=== PATIENT | male | born 1990 | race Caucasian/White ===

== ENCOUNTER 2018-07-25 14:05 | Emergency (ER) | payer MEDICAID, OTHER ==
[~2018-07-25] VITALS: Ht 177.8 cm; Wt 118.2 kg
[2018-07-25] MEDS ORDERED: amox tr/potassium clavulanate 875/125mg TAB PO ONE (15:05)
[2018-07-25] MEDS ORDERED: ondansetron 4mg rapidly disintigrating tab PO ONE (15:05)
[2018-07-25] MEDS ORDERED: AMOX-580 PO (15:42)
[2018-07-25 15:49] VITALS: BP 116/79
== END 2018-07-25 15:51 | disposition home or self-care (01) ==
LOC: ER 14:05
DX: R22.0 Localized swelling, mass and lump, head (principal); K08.89 Other specified disorders of teeth and supporting structures; K21.9 Gastro-esophageal reflux disease without esophagitis
CPT/HCPCS: 99283

== ENCOUNTER 2019-02-05 08:47 | Emergency (ER) | payer MEDICAID, OTHER ==
[~2019-02-05] VITALS: Ht 177.8 cm; Wt 69.0 kg
[2019-02-05] MEDS ORDERED: ondansetron/PF 4mg/2ml inj IV ONE ×2 (09:15→12:45)
[2019-02-05] MEDS ORDERED: famotidine/PF 10 mg/ml inj IV ONE (09:15)
[2019-02-05] MEDS ORDERED: normal saline 1000ML IV soln IVB ONE (09:15)
[2019-02-05 09:26] LABS: BASOPHILS % (AUTO) 0.2 % (0-1); MEAN CORPUSCULAR HGB CONC 34.9 g/dL (33.0-36.5)
[2019-02-05 09:30] LABS: EOSINOPHILS % (AUTO) 0.1 % (0-6); HEMATOCRIT 51.4 % (42.0-52.0); HEMOGLOBIN 17.9 g/dl (14.0-17.9); LYMPHOCYTES # (AUTO) 1.8 X10'3 (1.1-4.8); LYMPHOCYTES % (AUTO) 10.7 % (21-51); MEAN CORPUSCULAR HEMOGLOBIN 30.2 PG (27.0-31.0); MEAN CORPUSCULAR VOLUME 86.5 FL (78-98); MONOCYTES # (AUTO) 1.1 X10'3 (0-0.9); MONOCYTES % (AUTO) 6.6 % (2-12); NEUTROPHILS # (AUTO) 13.7 X10'3 (1.8-7.7); NEUTROPHILS % (AUTO) 82.4 % (42-75); PLATELET COUNT 301 X10'3 (140-440); RED BLOOD COUNT 5.94 X10'6 (4.70-6.10); RED CELL DISTRIBUTION WIDTH 12.9 % (11.5-14.5); WHITE BLOOD COUNT 16.6 X10'3 (4.5-11.0)
[2019-02-05 09:36] LABS: ALANINE AMINOTRANSFERASE 27 U/L (12-78); ALBUMIN 5.1 G/DL (3.4-5.0); ALBUMIN/GLOBULIN RATIO 1.2 (1.1-1.5); ALKALINE PHOSPHATASE 90 IU/L (46-116); ANION GAP 16 (8-16); ASPARTATE AMINO TRANSFERASE 16 U/L (10-37); BILIRUBIN,TOTAL 1.6 MG/DL (0.1-1.0); BLOOD UREA NITROGEN 32 MG/DL (7-18); BUN/CREATININE RATIO 18.1 (5.4-32.0); CALCIUM 9.7 MG/DL (8.5-10.1); CHLORIDE 98 MMOL/L (99-107); CREATININE 1.77 MG/DL (0.60-1.10); GLUCOSE 147 MG/DL (70-104); POTASSIUM 3.4 MMOL/L (3.5-5.1); SODIUM 137 MMOL/L (135-145); TOTAL CARBON DIOXIDE 22.7 MMOL/L (24-32); TOTAL PROTEIN 9.4 G/DL (6.4-8.2); eGFR 46 ML/MIN
[2019-02-05 09:40] LABS: CLARITY,URINE CLOUDY (Clear); COLOR,URINE YELLOW (Yellow); GLUCOSE, URINE NEGATIVE (Neg); KETONES,URINE TRACE mg/dl (Neg); LEUKOCYTE ESTERASE ,URINE NEGATIVE (Neg); OCCULT BLOOD,URINE MODERATE (Neg); PROTEIN,URINE >=300 mg/dl (Neg)
[2019-02-05 09:44] LABS: UA COLLECTION TYPE CLN CATCH MIDSTREAM
[2019-02-05 09:46] LABS: NITRITES, URINE NEGATIVE (Neg)
[2019-02-05 09:49] LABS: HYALINE CASTS >30 /LPF (NEGATIVE); SQUAMOUS EPITHELIAL CELL,UR FEW /LPF (FEW)
[2019-02-05 09:51] LABS: BACTERIA,URINE 2+ /HPF (Neg); RBC,URINE 0-2 /HPF (0-2)
[2019-02-05] MEDS ORDERED: normal saline 1000ML IV soln IV ONE (10:30)
[2019-02-05] MEDS ORDERED: CEPH250T PO (11:29)
[2019-02-05] MEDS ORDERED: ONDA4TAB6 PO (11:29)
[2019-02-05] MEDS ORDERED: CefTRIAXone 2gm/D5W 50ml 50 ML IV ONE (11:30)
--- NOTE | 2019-02-05 11:43 | NUR ---
spoke with SHIV Jenkins, he said that Sam does not need the 4th liter of fluid, just the Rocephin
[2019-02-05 12:49] VITALS: BP 127/71
== END 2019-02-05 12:53 | disposition home or self-care (01) ==
LOC: ER 08:47
DX: N39.0 Urinary tract infection, site not specified (principal); N28.9 Disorder of kidney and ureter, unspecified; E86.0 Dehydration; R11.2 Nausea with vomiting, unspecified; R19.7 Diarrhea, unspecified; K21.9 Gastro-esophageal reflux disease without esophagitis; M54.9 Dorsalgia, unspecified; R79.1 Abnormal coagulation profile; Z79.899 Other long term (current) drug therapy
CPT/HCPCS: 36415; 71045; 74176; 80053; 81001; 83605; 84145; 85025; 85610; 87040; 87088; 96361; 96365; 96375; 96376; 99284; J0696; J2405; J3490; J7030

== ENCOUNTER 2019-03-10 18:16 | Emergency (ER) | payer SELFPAY ==
[~2019-03-10] VITALS: Ht 177.8 cm; Wt 58.5 kg
[~2019-03-10 18:16] MED LIST: ONDA4TAB6 PO
[2019-03-10] MEDS ORDERED: ondansetron/PF 4mg/2ml inj IV ONE ×2 (19:55→20:15)
[2019-03-10 20:13] LABS: BASOPHILS % (AUTO) 0.2 % (0-1); EOSINOPHILS % (AUTO) 0 % (0-6); HEMATOCRIT 51.6 % (42.0-52.0); HEMOGLOBIN 17.9 g/dl (14.0-17.9); LYMPHOCYTES # (AUTO) 1.6 X10'3 (1.1-4.8); LYMPHOCYTES % (AUTO) 8.3 % (21-51); MEAN CORPUSCULAR HEMOGLOBIN 30.1 PG (27.0-31.0); MEAN CORPUSCULAR HGB CONC 34.7 g/dL (33.0-36.5); MEAN CORPUSCULAR VOLUME 86.8 FL (78-98); MEAN PLATELET VOLUME 7.6 FL (7.4-10.4); MONOCYTES # (AUTO) 1.1 X10'3 (0-0.9); MONOCYTES % (AUTO) 5.4 % (2-12); NEUTROPHILS # (AUTO) 16.7 X10'3 (1.8-7.7); NEUTROPHILS % (AUTO) 86.1 % (42-75); PLATELET COUNT 396 X10'3 (140-440); RED BLOOD COUNT 5.95 X10'6 (4.70-6.10); RED CELL DISTRIBUTION WIDTH 12.7 % (11.5-14.5); WHITE BLOOD COUNT 19.4 X10'3 (4.5-11.0)
[2019-03-10] MEDS ORDERED: normal saline 1000ML IV soln IVB ONE (20:15)
[2019-03-10] MEDS ORDERED: diphenhydrAMINE 50 mg/ml inj IV ONE (20:15)
[2019-03-10] MEDS ORDERED: haloperidol lactate 5mg/ml inj IM ONE (20:15)
[2019-03-10 20:25] LABS: ALANINE AMINOTRANSFERASE 27 U/L (12-78); ALBUMIN 4.7 G/DL (3.4-5.0); ALBUMIN/GLOBULIN RATIO 1.2 (1.1-1.5); ALKALINE PHOSPHATASE 80 IU/L (46-116); ANION GAP 17 (8-16); ASPARTATE AMINO TRANSFERASE 22 U/L (10-37); BLOOD UREA NITROGEN 10 MG/DL (7-18); BUN/CREATININE RATIO 9.3 (5.4-32.0); CALCIUM 10.1 MG/DL (8.5-10.1); CHLORIDE 101 MMOL/L (99-107); CREATININE 1.07 MG/DL (0.60-1.10); GLUCOSE 134 MG/DL (70-104); LIPASE 65 U/L (73-393); POTASSIUM 3.4 MMOL/L (3.5-5.1); SODIUM 140 MMOL/L (135-145); TOTAL CARBON DIOXIDE 22.3 MMOL/L (24-32); TOTAL PROTEIN 8.7 G/DL (6.4-8.2); eGFR 82 ML/MIN
[2019-03-10 20:34] LABS: CLARITY,URINE CLEAR (Clear); COLOR,URINE YELLOW (Yellow); GLUCOSE, URINE NEGATIVE (Neg); KETONES,URINE >=80 mg/dl (Neg); LEUKOCYTE ESTERASE ,URINE NEGATIVE (Neg); NITRITES, URINE NEGATIVE (Neg); OCCULT BLOOD,URINE SMALL (Neg); PROTEIN,URINE 100 mg/dl (Neg); UA COLLECTION TYPE VOIDED
[2019-03-10 20:53] LABS: BACTERIA,URINE NONE SEEN /HPF (Neg); MUCUS STRANDS MANY /LPF (Neg); RBC,URINE 20-50 /HPF (0-2); SQUAMOUS EPITHELIAL CELL,UR FEW /LPF (FEW); WBC,URINE 0-4 /HPF (0-4)
[2019-03-10] MEDS ORDERED: ketorolac trometh. 30mg/ml inj. IV ONE (21:20)
[2019-03-10] MEDS ORDERED: ONDA8TAB6 PO (21:23)
[2019-03-10 22:00] VITALS: BP 122/66
== END 2019-03-10 22:04 | disposition home or self-care (01) ==
LOC: ER 18:17
DX: G43.A0 Cyclical vomiting, in migraine, not intractable (principal); E86.0 Dehydration; K21.9 Gastro-esophageal reflux disease without esophagitis; F12.90 Cannabis use, unspecified, uncomplicated; F17.200 Nicotine dependence, unspecified, uncomplicated; Z79.899 Other long term (current) drug therapy
CPT/HCPCS: 36415; 80053; 81001; 83690; 85025; 85610; 93005; 96361; 96372; 96374; 96375; 99284; J1200; J1630; J1885; J2405; J7030

== ENCOUNTER 2019-05-19 06:38 | Emergency (ER) | payer OTHER ==
[~2019-05-19] VITALS: Ht 177.8 cm; Wt 66.0 kg
[~2019-05-19 06:38] MED LIST changes: +ONDA8TAB6 PO
[2019-05-19] MEDS ORDERED: pantoprazole 40 MG vial IV ONE (07:20)
[2019-05-19] MEDS ORDERED: normal saline 1000ML IV soln IVB ONE (07:20)
[2019-05-19] MEDS ORDERED: haloperidol lactate 5mg/ml inj IM ONE (07:20)
[2019-05-19] MEDS ORDERED: proCHLORperazine 10 MG/2 ml inj IV ONE (07:20)
[2019-05-19] MEDS ORDERED: LORazepam 2 mg/ml vial IV ONE (07:20)
[2019-05-19] MEDS ORDERED: diphenhydrAMINE 50 mg/ml inj IV ONE (07:20)
[2019-05-19 08:49] LABS: BASOPHILS % (AUTO) 0.2 % (0-1); EOSINOPHILS # (AUTO) 0.1 X10'3 (0-0.9); EOSINOPHILS % (AUTO) 0.8 % (0-6); HEMATOCRIT 49.3 % (42.0-52.0); LYMPHOCYTES # (AUTO) 2.2 X10'3 (1.1-4.8); LYMPHOCYTES % (AUTO) 13.3 % (21-51); MEAN CORPUSCULAR HEMOGLOBIN 30.7 PG (27.0-31.0); MEAN CORPUSCULAR HGB CONC 34.5 g/dL (33.0-36.5); MEAN CORPUSCULAR VOLUME 88.9 FL (78-98); MEAN PLATELET VOLUME 8.4 FL (7.4-10.4); MONOCYTES # (AUTO) 0.5 X10'3 (0-0.9); MONOCYTES % (AUTO) 3.1 % (2-12); NEUTROPHILS # (AUTO) 13.8 X10'3 (1.8-7.7); NEUTROPHILS % (AUTO) 82.6 % (42-75); PLATELET COUNT 246 X10'3 (140-440); RED BLOOD COUNT 5.54 X10'6 (4.70-6.10); RED CELL DISTRIBUTION WIDTH 13.2 % (11.5-14.5); WHITE BLOOD COUNT 16.7 X10'3 (4.5-11.0)
[2019-05-19 08:53] LABS: ALANINE AMINOTRANSFERASE 26 U/L (12-78); ALBUMIN 4.7 G/DL (3.4-5.0); ALBUMIN/GLOBULIN RATIO 1.4 (1.1-1.5); ALKALINE PHOSPHATASE 83 IU/L (46-116); AMYLASE 34 U/L (25-115); ANION GAP 15 (8-16); ASPARTATE AMINO TRANSFERASE 26 U/L (10-37); BILIRUBIN,TOTAL 0.7 MG/DL (0.1-1.0); BLOOD UREA NITROGEN 10 MG/DL (7-18); CALCIUM 9.9 MG/DL (8.5-10.1); CHLORIDE 106 MMOL/L (99-107); GLUCOSE 152 MG/DL (70-104); LIPASE 83 U/L (73-393); POTASSIUM 3.7 MMOL/L (3.5-5.1); SODIUM 144 MMOL/L (135-145); TOTAL CARBON DIOXIDE 22.8 MMOL/L (24-32); eGFR 88 ML/MIN
--- NOTE | 2019-05-19 10:40 | NUR ---
PT GIVEN PO
[2019-05-19] MEDS ORDERED: ONDA8TAB13 PO (10:45)
[2019-05-19] MEDS ORDERED: PANT-47 PO (10:45)
[2019-05-19 11:21] VITALS: BP 138/69
--- NOTE | 2019-05-20 09:15 | NUR ---
PT CALLED, STATING THAT RX x2 THAT WAS ELECTRICALLY TRANSMITTED TO [facility] ON [address] WAS NEVER RECEIVED. PHARMACY WAS CALLED AND VERIFIED THAT IT WAS NOT RECEIVED BY THEM OR ANY OTHER [facility]. NOTIFIED SHIV MALIN RX WAS PHONED INTO [facility] ON [address] AND PT WAS NOTIFIED.
== END 2019-05-19 11:23 | disposition home or self-care (01) ==
LOC: ER 06:39
DX: K52.9 Noninfective gastroenteritis and colitis, unspecified (principal); R11.2 Nausea with vomiting, unspecified; K21.9 Gastro-esophageal reflux disease without esophagitis; F12.90 Cannabis use, unspecified, uncomplicated; Z79.899 Other long term (current) drug therapy
CPT/HCPCS: 36415; 80053; 82150; 83690; 85025; 93005; 96361; 96372; 96374; 96375; 99284; C9113; J0780; J1200; J1630; J2060; J7030

== ENCOUNTER 2019-05-21 20:17 | Inpatient (IN) | payer MEDICAID, OTHER ==
[~2019-05-21] VITALS: Ht 177.8 cm; Wt 52.3 kg
[~2019-05-21 20:17] MED LIST changes: +ONDA8TAB13 PO; +PANT-47 PO
[2019-05-21] MEDS ORDERED: haloperidol lactate 5mg/ml inj IM ONE (20:40)
[2019-05-21] MEDS ORDERED: normal saline 1000ML IV soln IVB ONE (20:40)
[2019-05-21] MEDS ORDERED: diphenhydrAMINE 50 mg/ml inj IV ONE (20:40)
[2019-05-21] MEDS ORDERED: ondansetron/PF 4mg/2ml inj IV ONE (20:40)
[2019-05-21 20:59] LABS: EOSINOPHILS % (AUTO) 0 % (0-6); LYMPHOCYTES # (AUTO) 1.9 X10'3 (1.1-4.8); MEAN CORPUSCULAR VOLUME 86.1 FL (78-98)
[2019-05-21 21:00] LABS: BASOPHILS % (AUTO) 0.2 % (0-1); HEMATOCRIT 57.9 % (42.0-52.0); LYMPHOCYTES % (AUTO) 7.9 % (21-51); MEAN CORPUSCULAR HEMOGLOBIN 30.2 PG (27.0-31.0); MEAN CORPUSCULAR HGB CONC 35.1 g/dL (33.0-36.5); MONOCYTES # (AUTO) 1.5 X10'3 (0-0.9); MONOCYTES % (AUTO) 6.1 % (2-12); NEUTROPHILS % (AUTO) 85.8 % (42-75); RED BLOOD COUNT 6.73 X10'6 (4.70-6.10); WHITE BLOOD COUNT 24.4 X10'3 (4.5-11.0)
--- NOTE | 2019-05-21 21:00 | NUR ---
Pts meds given and multiple warmed blankets wrapped around the patient and side rails up and pt educated not to get up by himself. His mom and another gal in the room with him too. The monitor devices were placed onto the pt. He was educated about all the medicines. He verbalized understanding. A urinal placed on siderail. The lights were dimmed. Informed the patient that all these meds will make him nice and sleepy and that he should just allow sleep to come and that we are monitoring him so not to worry about falling asleep. He is comfortable with that. He said rest would be nice because he sure hasn't sleep too much the past 4 days.
[2019-05-21 21:11] LABS: ALANINE AMINOTRANSFERASE 37 U/L (12-78); ALBUMIN 6.5 G/DL (3.4-5.0); ALBUMIN/GLOBULIN RATIO 1.5 (1.1-1.5); ALKALINE PHOSPHATASE 115 IU/L (46-116); ANION GAP 22 (8-16); ASPARTATE AMINO TRANSFERASE 24 U/L (10-37); BILIRUBIN,TOTAL 1.3 MG/DL (0.1-1.0); BLOOD UREA NITROGEN 42 MG/DL (7-18); BUN/CREATININE RATIO 8.6 (5.4-32.0); CHLORIDE 90 MMOL/L (99-107); CREATININE 4.86 MG/DL (0.60-1.10); GLUCOSE 190 MG/DL (70-104); LIPASE 88 U/L (73-393); POTASSIUM 3.4 MMOL/L (3.5-5.1); SODIUM 136 MMOL/L (135-145); TOTAL CARBON DIOXIDE 23.8 MMOL/L (24-32); TOTAL PROTEIN 10.9 G/DL (6.4-8.2); eGFR 14 ML/MIN
[2019-05-21 21:12] LABS: HEMOGLOBIN 20.3 g/dl (14.0-17.9)
--- NOTE | 2019-05-21 21:21 | NUR ---
provided pt with cup of water and encouraged drinking
--- NOTE | 2019-05-21 21:29 | NUR ---
per pt girlfriend, pt has been taking her omeprazole 20mg daily but does not have a prescription himself for it.
[2019-05-21] MEDS ORDERED: OMEP40CA13 PO (21:31)
[2019-05-21 21:32] LABS: MEAN PLATELET VOLUME 7.9 FL (7.4-10.4); PLATELET COUNT 391 X10'3 (140-440)
[2019-05-21] MEDS ORDERED: HYDROcodone/acetaminophen 5mg/325mg tablet PO PRN (21:35)
[2019-05-21] MEDS ORDERED: acetaminophen 325mg tablet PO PRN (21:35)
[2019-05-21] MEDS ORDERED: morphine 2 MG/ML inj. syringe IV PRN ×2 (21:35)
[2019-05-21] MEDS ORDERED: mag hydrox/Alum hydrox/simeth 30ml oral suspension PO PRN (21:35)
[2019-05-21] MEDS ORDERED: magnesium hydroxide 30ml (MOM) UD suspension PO PRN (21:35)
[2019-05-21] MEDS ORDERED: HYDROcodone/acetaminophen 10/325mg tab PO PRN (21:35)
--- NOTE | 2019-05-21 22:05 | NUR ---
PATIENT ADMITTED TO ROOM 360A FROM ER FOR ACUTE KIDNEY INJURY. PLACED COMFORTABLE IN BED. VITAL SIGNS TAKEN AND RECORDED.
[2019-05-21] MEDS: normal saline 1000ml 1,000 ML IV SCH (22:15)
[2019-05-21 22:35] VITALS: BP 123/76
[2019-05-21 22:36] VITALS: BP_SYST 119; BP_SYST 122; BP_SYST 123; BP_DIAS 71; BP_DIAS 72; BP_DIAS 76
[2019-05-21] MEDS ORDERED: chlordiazePOXIDE 25mg capsule PO PRN (23:55)
[2019-05-22] MEDS: pantoprazole 40mg Tablet.DR PO SCH ×3 (00:07→19:40)
--- NOTE | 2019-05-22 02:14 | NUR ---
Problems reprioritized. Patient report given, questions answered & plan of care reviewed with EFE LOO.
--- NOTE | 2019-05-22 02:15 | NUR ---
Patient in room [facility]. I have received report from DREA SHEPARD RN and had the opportunity to ask questions and assume patient care. Addendum: 05/22/19 at 0305 by Allan Lujan RN Amended: Links added.
[2019-05-22 05:39] LABS: CLARITY,URINE CLEAR (Clear); COLOR,URINE YELLOW (Yellow); GLUCOSE, URINE NEGATIVE (Neg); KETONES,URINE NEGATIVE (Neg); LEUKOCYTE ESTERASE ,URINE NEGATIVE (Neg); NITRITES, URINE NEGATIVE (Neg); OCCULT BLOOD,URINE MODERATE (Neg); PH,URINE 5.5 (4.8-8.0); PROTEIN,URINE 100 mg/dl (Neg); UA COLLECTION TYPE VOIDED; UROBILINOGEN,URINE 0.2 E.U/dL (0.2-1.0)
[2019-05-22 05:46] LABS: BACTERIA,URINE 1+ /HPF (Neg); MUCUS STRANDS MODERATE /LPF (Neg); SQUAMOUS EPITHELIAL CELL,UR NONE SEEN /LPF (FEW); TRANSITIONAL EPI CELLS,URINE FEW /HPF; URIC ACID CRYSTALS 1+ /HPF (NEGATIVE)
[2019-05-22 05:47] LABS: HYALINE CASTS >30 /LPF (NEGATIVE)
[2019-05-22 06:07] LABS: BASOPHILS % (AUTO) 0 % (0-1); EOSINOPHILS % (AUTO) 0.2 % (0-6); HEMOGLOBIN 16.7 g/dl (14.0-17.9); LYMPHOCYTES # (AUTO) 3.3 X10'3 (1.1-4.8); LYMPHOCYTES % (AUTO) 19.4 % (21-51); MEAN CORPUSCULAR HEMOGLOBIN 30.7 PG (27.0-31.0); MEAN CORPUSCULAR HGB CONC 34.9 g/dL (33.0-36.5); MONOCYTES # (AUTO) 1.6 X10'3 (0-0.9); MONOCYTES % (AUTO) 9.6 % (2-12); NEUTROPHILS # (AUTO) 11.9 X10'3 (1.8-7.7); NEUTROPHILS % (AUTO) 70.8 % (42-75); PLATELET COUNT 227 X10'3 (140-440); RED BLOOD COUNT 5.45 X10'6 (4.70-6.10); WHITE BLOOD COUNT 16.8 X10'3 (4.5-11.0)
--- NOTE | 2019-05-22 06:23 | NUR ---
Problems reprioritized. Patient report given, questions answered & plan of care reviewed with EZE LOU. Addendum: 05/22/19 at 0623 by Allan Lujan RN Amended: Links added.
[2019-05-22 06:36] LABS: ALBUMIN 4.3 G/DL (3.4-5.0); ANION GAP 8 (8-16); BLOOD UREA NITROGEN 31 MG/DL (7-18); BUN/CREATININE RATIO 17.1 (5.4-32.0); CALCIUM 8.7 MG/DL (8.5-10.1); CHLORIDE 97 MMOL/L (99-107); CREATININE 1.81 MG/DL (0.60-1.10); GLUCOSE 108 MG/DL (70-104); SODIUM 134 MMOL/L (135-145); TOTAL CARBON DIOXIDE 28.7 MMOL/L (24-32); eGFR 45 ML/MIN
[2019-05-22 06:47] LABS: POTASSIUM 2.9 MMOL/L (3.5-5.1)
--- NOTE | 2019-05-22 06:53 | NUR ---
Patient in room [facility] 360. I have received report from EFE LOO and had the opportunity to ask questions and assume patient care.
[2019-05-22 08:00] VITALS: BP_SYST 148; BP_SYST 156; BP_SYST 164; BP_DIAS 85; BP_DIAS 89; BP_DIAS 93
[2019-05-22] MEDS: ondansetron/PF 4mg/2ml inj IV PRN (08:12)
[2019-05-22 08:19] VITALS: BP 138/90
[2019-05-22] MEDS: normal saline 1000ml 1,000 ML IV SCH ×2 (08:21→17:59)
[2019-05-22] MEDS ORDERED: proCHLORperazine 10 MG/2 ml inj IV PRN (08:25)
[2019-05-22] MEDS ORDERED: potassium Cl 20 mEq SR tablet PO PRN (08:25)
[2019-05-22] MEDS ORDERED: magnesium 4gm in 100ml NS 100 ML IV PRN (08:25)
[2019-05-22] MEDS ORDERED: potassium CL 10mEq/100ml bag 100 ML IV PRN (08:25)
[2019-05-22] MEDS ORDERED: magnesium Cl slow-release 64mg tablet PO PRN (08:25)
[2019-05-22] MEDS ORDERED: magnesium 2GM in 50ml NS 50 ML IV PRN (08:25)
[2019-05-22] MEDS: potassium Cl 20 mEq SR tablet PO PRN ×3 (08:57→17:12)
[2019-05-22] MEDS ORDERED: FLU VACC QS2019-20 36MOS UP/PF 60 MCG/0.5 ML SYRINGE IMVAC ONE (10:00)
[2019-05-22 11:00] VITALS: BP 118/62
[2019-05-22 13:19] LABS: URINE AMPHETAMINE SCREEN NEGATIVE (Neg); URINE BARBITUATE SCREEN NEGATIVE (Neg); URINE BENZODIAZEPINES SCREEN NEGATIVE (Neg); URINE CANNABINOID SCREEN POSITIVE (Neg); URINE COCAINE SCREEN NEGATIVE (Neg); URINE METHADONE SCREEN NEGATIVE (Neg); URINE OPIATE SCREEN POSITIVE (Neg); URINE PHENCYCLIDINE SCREEN NEGATIVE (Neg)
--- NOTE | 2019-05-22 15:13 | NUR ---
Low BMI screen: Pt BMI 16.5 admit w/ intractable N/V for 5 days, EDGAR, and dehydration. Pt sleeping and unable to wake during RD visit and also covered w/ blankets unable to perform accurate visible malnutrition assessment. Pt has had 10% UBW loss past 2 months 58.45kg in March vs current 52.3kg both chair scales. Pt has no strength assessment at this time and no edema/wounds. Did refuse first meal so far likely r/t GI issues; per RN currently pt N/V resolved PO 50% avg lunch and has no visible signs of muscle/fat wasting simply tall/thin frame. Given low PO hx in addition to severe wt loss hx pt qualifies for severe malnutrition at this time. Will need malnutrition ed prior to d/c. Will monitor for ONS/food preferences as GI symptoms and PO continue to improve. Rec: 1. continue regular diet 2. monitor for ONS needs 3. malnutrition ed prior to d/c 4. wt per rx Addendum: 05/22/19 at [address] Amended: Links added.
--- NOTE | 2019-05-22 18:15 | NUR ---
Patient in room [facility] 360. I have received report from and had the opportunity to ask questions and assume patient care.
--- NOTE | 2019-05-22 18:32 | NUR ---
patient nauseated 0700 given zofran with effect. Seen by DR Mcbride, is for DC in am. All cares given. no more pain or nausea reported during rest of shift. Report given to Ronald LOO
[2019-05-22 20:00] VITALS: BP 133/80
[2019-05-23] VITALS: BP 119/64
[2019-05-23] MEDS ORDERED: diphenhydrAMINE 25mg capsule PO PRN (01:25)
--- NOTE | 2019-05-23 01:50 | NUR ---
PAGER ID: [phone] MESSAGE: Sam [facility] 360A - requesting something to help him sleep. Received Benadryl in ER last night and states it worked well. Please advise. - Ronald LOO [id number] ordered Benadryl 50mg PO HS PRN INSOMNIA.
[2019-05-23] MEDS: normal saline 1000ml 1,000 ML IV SCH (04:33)
[2019-05-23 05:43] LABS: BASOPHILS % (AUTO) 0.1 % (0-1); EOSINOPHILS % (AUTO) 0.4 % (0-6); HEMATOCRIT 42.7 % (42.0-52.0); HEMOGLOBIN 15.1 g/dl (14.0-17.9); LYMPHOCYTES # (AUTO) 1.9 X10'3 (1.1-4.8); LYMPHOCYTES % (AUTO) 19.7 % (21-51); MEAN CORPUSCULAR HEMOGLOBIN 31.2 PG (27.0-31.0); MEAN CORPUSCULAR HGB CONC 35.3 g/dL (33.0-36.5); MEAN CORPUSCULAR VOLUME 88.4 FL (78-98); MEAN PLATELET VOLUME 8.2 FL (7.4-10.4); MONOCYTES # (AUTO) 0.8 X10'3 (0-0.9); MONOCYTES % (AUTO) 7.9 % (2-12); NEUTROPHILS % (AUTO) 71.9 % (42-75); PLATELET COUNT 170 X10'3 (140-440); RED BLOOD COUNT 4.83 X10'6 (4.70-6.10); RED CELL DISTRIBUTION WIDTH 12.8 % (11.5-14.5); WHITE BLOOD COUNT 9.7 X10'3 (4.5-11.0)
[2019-05-23 05:48] LABS: ALBUMIN 3.6 G/DL (3.4-5.0); ANION GAP 8 (8-16); BLOOD UREA NITROGEN 14 MG/DL (7-18); BUN/CREATININE RATIO 16.1 (5.4-32.0); CALCIUM 8.1 MG/DL (8.5-10.1); CHLORIDE 101 MMOL/L (99-107); CREATININE 0.87 MG/DL (0.60-1.10); GLUCOSE 107 MG/DL (70-104); POTASSIUM 3.8 MMOL/L (3.5-5.1); SODIUM 135 MMOL/L (135-145); TOTAL CARBON DIOXIDE 25.9 MMOL/L (24-32); eGFR > 90 ML/MIN
--- NOTE | 2019-05-23 06:21 | NUR ---
Problems reprioritized. Patient report given, questions answered & plan of care reviewed with Alma Delia LOO.
--- NOTE | 2019-05-23 06:39 | NUR ---
Change of shift Patient in room [facility] 360. I have received report from EZE Cardenas and had the opportunity to ask questions and assume patient care.
[2019-05-23 06:56] VITALS: BP 119/62
[2019-05-23 11:00] VITALS: BP 137/72
[2019-05-23] MEDS: pantoprazole 40mg Tablet.DR PO SCH (11:45)
[2019-05-23] MEDS: ondansetron/PF 4mg/2ml inj IV PRN (12:25)
--- NOTE | 2019-05-23 13:55 | NUR ---
DISCHARGE NOTE: PATIENT STABLE AND APPROPRIATE FOR DISCHARGE, IV TAKEN OUT, EDUCATION GIVEN, ALL BELONGINGS SENT WITH PATIENT, PATIENT TAKEN IN A WHEEL CHAIR TO LOBBY TO AN AWAITING CAR WHERE WILL TAKE PATIENT HOME
== END 2019-05-23 13:56 | disposition home or self-care (01) | DRG 422 ==
LOC: ER 20:18 → SUR 3N 21:35 → CMPBEDREQ 22:19
PROVIDERS: ADMIT Internal Medicine; ATTEND Family Medicine
DX: E86.0 Dehydration (principal); N17.0 Acute kidney failure with tubular necrosis; D72.829 Elevated white blood cell count, unspecified; R11.15 Cyclical vomiting syndrome unrelated to migraine; F12.90 Cannabis use, unspecified, uncomplicated; E87.6 Hypokalemia; K21.9 Gastro-esophageal reflux disease without esophagitis; K29.70 Gastritis, unspecified, without bleeding; R19.7 Diarrhea, unspecified; Z23 Encounter for immunization
CPT/HCPCS: 36415; 71045; 74176; 80048; 80053; 80305; 81001; 83690; 84132; 85025; 87081; 87088; 96372; 96374; 96375; 99285; G0378; J0780; J1200; J1630; J2405; J7030; Q0163; Q2037

== ENCOUNTER 2019-08-18 13:41 | Inpatient (IN) | payer MEDICAID, OTHER ==
[~2019-08-18] VITALS: Ht 177.8 cm; Wt 63.6 kg
[~2019-08-18 13:41] MED LIST changes: -ONDA8TAB13 PO; -ONDA8TAB6 PO
[2019-08-18] MEDS ORDERED: HYDROmorphone 1 mg/ml syringe IV ONE (13:50)
[2019-08-18] MEDS ORDERED: normal saline 1000ML IV soln IV ONE (13:50)
[2019-08-18] MEDS ORDERED: diatr meglu/diatrizoate 30ml oral sol.-(3 dose) bottle PO SCH ×2 (14:00→15:30)
[2019-08-18] MEDS ORDERED: ondansetron/PF 4mg/2ml inj IV ONE (14:00)
[2019-08-18] MEDS ORDERED: piperacillin/tazo 3.375gm/50ml 50 ML IV ONE (14:00)
[2019-08-18 14:53] LABS: BASOPHILS % (AUTO) 0.2 % (0-1); EOSINOPHILS % (AUTO) 0.3 % (0-6); HEMATOCRIT 41.6 % (42.0-52.0); HEMOGLOBIN 14.5 g/dl (14.0-17.9); LYMPHOCYTES # (AUTO) 1.7 X10'3 (1.1-4.8); LYMPHOCYTES % (AUTO) 10.8 % (21-51); MEAN CORPUSCULAR HEMOGLOBIN 30.7 PG (27.0-31.0); MEAN CORPUSCULAR HGB CONC 34.8 g/dL (33.0-36.5); MEAN CORPUSCULAR VOLUME 88.2 FL (78-98); MEAN PLATELET VOLUME 8.4 FL (7.4-10.4); MONOCYTES # (AUTO) 0.9 X10'3 (0-0.9); MONOCYTES % (AUTO) 5.6 % (2-12); NEUTROPHILS # (AUTO) 13.2 X10'3 (1.8-7.7); NEUTROPHILS % (AUTO) 83.1 % (42-75); PLATELET COUNT 238 X10'3 (140-440); RED BLOOD COUNT 4.72 X10'6 (4.70-6.10); RED CELL DISTRIBUTION WIDTH 12.9 % (11.5-14.5); WHITE BLOOD COUNT 15.9 X10'3 (4.5-11.0)
[2019-08-18] MEDS ORDERED: magnesium Cl slow-release 64mg tablet PO PRN (14:55)
[2019-08-18] MEDS ORDERED: ondansetron/PF 4mg/2ml inj IV PRN (14:55)
[2019-08-18] MEDS ORDERED: magnesium 2GM in 50ml NS 50 ML IV PRN (14:55)
[2019-08-18] MEDS ORDERED: potassium Cl 20 mEq SR tablet PO PRN ×2 (14:55)
[2019-08-18] MEDS ORDERED: morphine 2 MG/ML inj. syringe IV PRN (14:55)
[2019-08-18] MEDS ORDERED: HYDROcodone/acetaminophen 5mg/325mg tablet PO PRN (14:55)
[2019-08-18] MEDS ORDERED: potassium CL 10mEq/100ml bag 100 ML IV PRN (14:55)
[2019-08-18] MEDS ORDERED: mag hydrox/Alum hydrox/simeth 30ml oral suspension PO PRN (14:55)
[2019-08-18] MEDS ORDERED: magnesium 4gm in 100ml NS 100 ML IV PRN (14:55)
[2019-08-18] MEDS ORDERED: acetaminophen 325mg tablet PO PRN (14:55)
[2019-08-18] MEDS ORDERED: magnesium hydroxide 30ml (MOM) UD suspension PO PRN (14:55)
[2019-08-18] MEDS ORDERED: NO HOME MEDS (15:00)
[2019-08-18 15:19] LABS: ALANINE AMINOTRANSFERASE 21 U/L (12-78); ALBUMIN 3.9 G/DL (3.4-5.0); ALBUMIN/GLOBULIN RATIO 1.4 (1.1-1.5); ALKALINE PHOSPHATASE 71 IU/L (46-116); ANION GAP 11 (8-16); ASPARTATE AMINO TRANSFERASE 16 U/L (10-37); BILIRUBIN,TOTAL 0.5 MG/DL (0.1-1.0); BLOOD UREA NITROGEN 9 MG/DL (7-18); BUN/CREATININE RATIO 9.3 (5.4-32.0); CALCIUM 8.3 MG/DL (8.5-10.1); CHLORIDE 110 MMOL/L (99-107); CREATININE 0.97 MG/DL (0.60-1.10); GLUCOSE 108 MG/DL (70-104); POTASSIUM 3.3 MMOL/L (3.5-5.1); SODIUM 144 MMOL/L (135-145); TOTAL CARBON DIOXIDE 23.4 MMOL/L (24-32); TOTAL PROTEIN 6.7 G/DL (6.4-8.2); eGFR > 90 ML/MIN
[2019-08-18] MEDS ORDERED: LORazepam 2 mg/ml vial IV ONE (15:20)
[2019-08-18] MEDS: piperacillin/tazo 3.375gm/50ml 50 ML IV SCH (16:00)
[2019-08-18] MEDS: normal saline 1000ml 1,000 ML IV SCH ×2 (16:14→18:55)
[2019-08-18 16:59] LABS: URINE AMPHETAMINE SCREEN NEGATIVE (Neg); URINE BARBITUATE SCREEN NEGATIVE (Neg); URINE BENZODIAZEPINES SCREEN NEGATIVE (Neg); URINE CANNABINOID SCREEN POSITIVE (Neg); URINE COCAINE SCREEN NEGATIVE (Neg); URINE METHADONE SCREEN NEGATIVE (Neg); URINE OPIATE SCREEN NEGATIVE (Neg); URINE PHENCYCLIDINE SCREEN NEGATIVE (Neg)
--- NOTE | 2019-08-18 17:55 | NUR ---
MOTHER, SISTER, AND GIRLFRIEND HERE TO VISIT. CONDITION REPORT GIVEN. VISITORS DEPARTED AND WILL CALL BACK LATER FOR UPDATE ON PATIENT CONDITION.
--- NOTE | 2019-08-18 18:15 | NUR ---
Patient in room [facility]. I have received report from Mckenzie RN in ED and had the opportunity to ask questions and will assume patient care when pt arrives to unit
--- NOTE | 2019-08-18 18:42 | NUR ---
Pt arrived to room at 1838 via gurney. Pt is alert and oriented, VSS, very painful.
[2019-08-18 18:45] VITALS: BP 125/79
[2019-08-18] MEDS ORDERED: diatr meglu/diatrizoate 30ml oral sol.-(3 dose) bottle PO ONE (18:45)
[2019-08-18] MEDS: morphine 2 MG/ML inj. syringe IV PRN (18:52)
[2019-08-18] MEDS: potassium CL 10mEq/100ml bag 100 ML IV PRN ×4 (19:01→22:19)
[2019-08-18] MEDS: K and/or MAG REPLACEMENT MC SCH (20:00)
[2019-08-18] MEDS: proCHLORperazine 10 MG/2 ml inj IV PRN (20:13)
[2019-08-18 20:46] VITALS: BP 125/69
[2019-08-19] VITALS: BP 156/90
[2019-08-19] MEDS: piperacillin/tazo 3.375gm/50ml 50 ML IV SCH ×4 (00:07→23:06)
[2019-08-19] MEDS: morphine 2 MG/ML inj. syringe IV PRN ×6 (00:07→21:42)
[2019-08-19] MEDS: proCHLORperazine 10 MG/2 ml inj IV PRN ×3 (04:42→23:03)
[2019-08-19 05:22] LABS: BASOPHILS % (AUTO) 0.2 % (0-1); EOSINOPHILS % (AUTO) 0.1 % (0-6); HEMATOCRIT 43.7 % (42.0-52.0); HEMOGLOBIN 14.9 g/dl (14.0-17.9); LYMPHOCYTES # (AUTO) 2.2 X10'3 (1.1-4.8); LYMPHOCYTES % (AUTO) 12.6 % (21-51); MEAN CORPUSCULAR HEMOGLOBIN 30.3 PG (27.0-31.0); MEAN CORPUSCULAR HGB CONC 34.1 g/dL (33.0-36.5); MEAN CORPUSCULAR VOLUME 89.1 FL (78-98); MEAN PLATELET VOLUME 8.5 FL (7.4-10.4); MONOCYTES # (AUTO) 0.9 X10'3 (0-0.9); MONOCYTES % (AUTO) 5.3 % (2-12); NEUTROPHILS # (AUTO) 14.2 X10'3 (1.8-7.7); NEUTROPHILS % (AUTO) 81.8 % (42-75); PLATELET COUNT 226 X10'3 (140-440); RED BLOOD COUNT 4.91 X10'6 (4.70-6.10); RED CELL DISTRIBUTION WIDTH 13.2 % (11.5-14.5); WHITE BLOOD COUNT 17.4 X10'3 (4.5-11.0)
[2019-08-19 05:36] LABS: ALBUMIN 3.9 G/DL (3.4-5.0); ANION GAP 11 (8-16); BLOOD UREA NITROGEN 5 MG/DL (7-18); BUN/CREATININE RATIO 5.9 (5.4-32.0); CALCIUM 8.8 MG/DL (8.5-10.1); CHLORIDE 107 MMOL/L (99-107); CREATININE 0.85 MG/DL (0.60-1.10); GLUCOSE 126 MG/DL (70-104); MAGNESIUM 1.7 MG/DL (1.5-2.4); POTASSIUM 3.5 MMOL/L (3.5-5.1); SODIUM 142 MMOL/L (135-145); TOTAL CARBON DIOXIDE 23.9 MMOL/L (24-32); eGFR > 90 ML/MIN
--- NOTE | 2019-08-19 06:20 | NUR ---
Patient in room [facility] 347. I have received report from EZE GILBERT and had the opportunity to ask questions and assume patient care.
--- NOTE | 2019-08-19 06:22 | NUR ---
Problems reprioritized. Patient report given, questions answered & plan of care reviewed with EZE Flannery.
[2019-08-19 07:00] VITALS: BP 140/72
[2019-08-19] MEDS: K and/or MAG REPLACEMENT MC SCH ×2 (08:00→19:22)
[2019-08-19] MEDS: normal saline 1000ml 1,000 ML IV SCH ×2 (08:55→21:40)
[2019-08-19 11:00] VITALS: BP 137/85
--- NOTE | 2019-08-19 18:40 | NUR ---
Problems reprioritized. Patient report given, questions answered & plan of care reviewed with EZE BETH.
[2019-08-19 20:00] VITALS: BP 135/82
[2019-08-19] MEDS: lactobacillus rhamnosus 10,000 MMU CELLS/CAPSULE PO SCH (20:15)
[2019-08-19] MEDS: traMADol 50MG tablet PO PRN (20:16)
[2019-08-20] VITALS: BP 130/69
[2019-08-20 04:59] LABS: BASOPHILS % (AUTO) 0.2 % (0-1); EOSINOPHILS % (AUTO) 0.4 % (0-6); LYMPHOCYTES # (AUTO) 2.1 X10'3 (1.1-4.8); LYMPHOCYTES % (AUTO) 19.8 % (21-51); MEAN CORPUSCULAR HEMOGLOBIN 30.9 PG (27.0-31.0); MEAN CORPUSCULAR VOLUME 88.2 FL (78-98); MEAN PLATELET VOLUME 8.1 FL (7.4-10.4); MONOCYTES # (AUTO) 0.8 X10'3 (0-0.9); MONOCYTES % (AUTO) 7.3 % (2-12); NEUTROPHILS # (AUTO) 7.7 X10'3 (1.8-7.7); NEUTROPHILS % (AUTO) 72.3 % (42-75); PLATELET COUNT 214 X10'3 (140-440); RED BLOOD COUNT 4.88 X10'6 (4.70-6.10); RED CELL DISTRIBUTION WIDTH 12.8 % (11.5-14.5); WHITE BLOOD COUNT 10.6 X10'3 (4.5-11.0)
[2019-08-20 05:15] LABS: ALBUMIN 3.9 G/DL (3.4-5.0); ANION GAP 9 (8-16); BLOOD UREA NITROGEN 6 MG/DL (7-18); BUN/CREATININE RATIO 6.8 (5.4-32.0); CALCIUM 8.8 MG/DL (8.5-10.1); CHLORIDE 103 MMOL/L (99-107); CREATININE 0.88 MG/DL (0.60-1.10); GLUCOSE 121 MG/DL (70-104); MAGNESIUM 1.7 MG/DL (1.5-2.4); POTASSIUM 3.3 MMOL/L (3.5-5.1); SODIUM 138 MMOL/L (135-145); TOTAL CARBON DIOXIDE 25.6 MMOL/L (24-32); eGFR > 90 ML/MIN
[2019-08-20] MEDS: normal saline 1000ml 1,000 ML IV SCH (05:43)
[2019-08-20] MEDS: morphine 2 MG/ML inj. syringe IV PRN (05:43)
--- NOTE | 2019-08-20 06:23 | NUR ---
Patient in room [facility] 348. I have received report from EZE BETH and had the opportunity to ask questions and assume patient care.
--- NOTE | 2019-08-20 06:37 | NUR ---
Problems reprioritized. Patient report given, questions answered & plan of care reviewed with Alma Delia LOO.
[2019-08-20 07:00] VITALS: BP 144/87
[2019-08-20] MEDS: K and/or MAG REPLACEMENT MC SCH (08:00)
[2019-08-20] MEDS: piperacillin/tazo 3.375gm/50ml 50 ML IV SCH (08:14)
[2019-08-20] MEDS: lactobacillus rhamnosus 10,000 MMU CELLS/CAPSULE PO SCH (08:14)
[2019-08-20] MEDS: traMADol 50MG tablet PO PRN (09:20)
--- NOTE | 2019-08-20 09:30 | NUR ---
GAVE REPORT TO GUICHO
[2019-08-20] MEDS ORDERED: AMOX-422 PO (10:07)
[2019-08-20] MEDS ORDERED: ONDA4TAB6 PO (10:07)
[2019-08-20] MEDS ORDERED: TRAM50TA2 PO (10:07)
[2019-08-20 11:00] VITALS: BP 139/98
--- NOTE | 2019-08-20 11:45 | NUR ---
Pt DC to home with sal. Pt and significant other verbalized understanding of all DC orders. Pt is A & O, no pain and in no apparent distress. pt's antibiotics and other meds efaxed to [facility]. Pt was wheeled out to the front where his panchitoe picked him up to go .
== END 2019-08-20 11:44 | disposition home or self-care (01) | DRG 720 ==
LOC: ER 13:43 → ED HOLD 14:51 → SUR 3N 18:40
PROVIDERS: ADMIT Hospitalist; ATTEND Hospitalist
DX: A41.9 Sepsis, unspecified organism (principal); E87.2 Acidosis; K56.1 Intussusception; K56.609 Unspecified intestinal obstruction, unspecified as to partial versus complete obstruction; K21.9 Gastro-esophageal reflux disease without esophagitis; F12.90 Cannabis use, unspecified, uncomplicated; Z82.49 Family history of ischemic heart disease and other diseases of the circulatory system; A04.9 Bacterial intestinal infection, unspecified
CPT/HCPCS: 36415; 74176; 80048; 80053; 80305; 83605; 83735; 85025; 85610; 87040; 87081; 96374; 96375; 99291; G0378; J0780; J1170; J2060; J2270; J2405; J2543; J3480; J7030; Q9963

== ENCOUNTER 2019-08-26 10:59 | Emergency (ER) | payer MEDICAID, OTHER ==
[~2019-08-26] VITALS: Ht 177.8 cm; Wt 156.0 kg
[~2019-08-26 10:59] MED LIST changes: +AMOX-422 PO; -PANT-47 PO; +TRAM50TA2 PO
[2019-08-26 11:11] VITALS: BP 156/76
[2019-08-26 11:55] LABS: ALANINE AMINOTRANSFERASE 46 U/L (12-78); ALBUMIN 5.6 G/DL (3.4-5.0); ALBUMIN/GLOBULIN RATIO 1.4 (1.1-1.5); ALKALINE PHOSPHATASE 110 IU/L (46-116); AMYLASE 41 U/L (25-115); ANION GAP 16 (8-16); ASPARTATE AMINO TRANSFERASE 25 U/L (10-37); BLOOD UREA NITROGEN 16 MG/DL (7-18); BUN/CREATININE RATIO 12.3 (5.4-32.0); CALCIUM 10.8 MG/DL (8.5-10.1); CHLORIDE 88 MMOL/L (99-107); GLUCOSE 107 MG/DL (70-104); LIPASE 173 U/L (73-393); SODIUM 130 MMOL/L (135-145); TOTAL CARBON DIOXIDE 26.1 MMOL/L (24-32); TOTAL PROTEIN 9.5 G/DL (6.4-8.2); eGFR 65 ML/MIN
[2019-08-26 11:57] LABS: POTASSIUM 2.5 MMOL/L (3.5-5.1)
[2019-08-26 12:26] LABS: EOSINOPHILS # (AUTO) 0.1 X10'3 (0-0.9); MEAN CORPUSCULAR VOLUME 85.4 FL (78-98)
--- NOTE | 2019-08-26 12:36 | NUR ---
patient has K+ of 2.5. Dr. Lord aware VM left to return to the ER.
[2019-08-26 12:39] LABS: HEMATOCRIT 53.7 % (42.0-52.0); MEAN CORPUSCULAR HEMOGLOBIN 30.1 PG (27.0-31.0); MEAN CORPUSCULAR HGB CONC 35.2 g/dL (33.0-36.5); RED BLOOD COUNT 6.28 X10'6 (4.70-6.10); RED CELL DISTRIBUTION WIDTH 12.6 % (11.5-14.5)
--- NOTE | 2019-08-26 12:39 | NUR ---
NIL at 1240, patient informed registration that he was leaving.
[2019-08-26 12:42] LABS: HEMOGLOBIN 18.9 g/dl (14.0-17.9)
[2019-08-26 12:43] LABS: BASOPHILS # (AUTO) 0.1 X10'3 (0-0.2); BASOPHILS % (AUTO) 0.5 % (0-1); EOSINOPHILS % (AUTO) 0.8 % (0-6); LYMPHOCYTES # (AUTO) 3.9 X10'3 (1.1-4.8); LYMPHOCYTES % (AUTO) 23.8 % (21-51); MONOCYTES # (AUTO) 1.4 X10'3 (0-0.9); MONOCYTES % (AUTO) 8.6 % (2-12); NEUTROPHILS # (AUTO) 10.9 X10'3 (1.8-7.7); NEUTROPHILS % (AUTO) 66.3 % (42-75); PLATELET COUNT 447 X10'3 (140-440); WHITE BLOOD COUNT 16.3 X10'3 (4.5-11.0)
== END 2019-08-26 12:41 | disposition left against medical advice (07) ==
LOC: ER 11:00
DX: R10.9 Unspecified abdominal pain (principal); R11.10 Vomiting, unspecified; Z53.21 Procedure and treatment not carried out due to patient leaving prior to being seen by health care provider
CPT/HCPCS: 36415; 80053; 82150; 83690; 85025

== ENCOUNTER 2019-11-04 13:49 | Emergency (ER) | payer SELFPAY ==
[~2019-11-04] VITALS: Ht 177.8 cm; Wt 61.4 kg
[~2019-11-04 13:49] MED LIST changes: -AMOX-422 PO
[2019-11-04 14:42] LABS: BASOPHILS % (AUTO) 0.2 % (0-1); EOSINOPHILS % (AUTO) 0.1 % (0-6); HEMATOCRIT 53.8 % (42.0-52.0); LYMPHOCYTES # (AUTO) 2.7 X10'3 (1.1-4.8); LYMPHOCYTES % (AUTO) 10.7 % (21-51); MEAN CORPUSCULAR HEMOGLOBIN 30.7 PG (27.0-31.0); MEAN CORPUSCULAR HGB CONC 34.2 g/dL (33.0-36.5); MEAN CORPUSCULAR VOLUME 89.7 FL (78-98); MEAN PLATELET VOLUME 8.2 FL (7.4-10.4); MONOCYTES # (AUTO) 1.9 X10'3 (0-0.9); MONOCYTES % (AUTO) 7.2 % (2-12); NEUTROPHILS # (AUTO) 20.9 X10'3 (1.8-7.7); NEUTROPHILS % (AUTO) 81.8 % (42-75); PLATELET COUNT 375 X10'3 (140-440); RED CELL DISTRIBUTION WIDTH 13.3 % (11.5-14.5)
[2019-11-04 14:47] LABS: WHITE BLOOD COUNT 25.6 X10'3 (4.5-11.0)
[2019-11-04 14:48] LABS: HEMOGLOBIN 18.4 g/dl (14.0-17.9)
[2019-11-04 15:02] LABS: ALANINE AMINOTRANSFERASE 32 U/L (12-78); ALBUMIN 5.6 G/DL (3.4-5.0); ALBUMIN/GLOBULIN RATIO 1.3 (1.1-1.5); ALKALINE PHOSPHATASE 103 IU/L (46-116); ANION GAP 19 (8-16); ASPARTATE AMINO TRANSFERASE 26 U/L (10-37); BILIRUBIN,TOTAL 1.5 MG/DL (0.1-1.0); BLOOD UREA NITROGEN 52 MG/DL (7-18); BUN/CREATININE RATIO 26.8 (5.4-32.0); CALCIUM 10.9 MG/DL (8.5-10.1); CHLORIDE 98 MMOL/L (99-107); CREATININE 1.94 MG/DL (0.60-1.10); GLUCOSE 140 MG/DL (70-104); LIPASE 105 U/L (73-393); SODIUM 140 MMOL/L (135-145); TOTAL CARBON DIOXIDE 23.1 MMOL/L (24-32); TOTAL PROTEIN 9.8 G/DL (6.4-8.2); eGFR 41 ML/MIN
[2019-11-04 15:03] LABS: POTASSIUM 3.3 MMOL/L (3.5-5.1)
[2019-11-04 15:14] LABS: PLATELET ESTIMATE NORMAL; TOTAL CELLS COUNTED 100
[2019-11-04] MEDS ORDERED: normal saline 1000ML IV soln IVB ONE ×2 (15:15→17:05)
[2019-11-04] MEDS ORDERED: ondansetron/PF 4mg/2ml inj IV ONE (16:00)
[2019-11-04 16:17] LABS: CLARITY,URINE SLIGHTLY CLOUDY (Clear); GLUCOSE, URINE NEGATIVE (Neg); KETONES,URINE NEGATIVE (Neg); LEUKOCYTE ESTERASE ,URINE NEGATIVE (Neg); NITRITES, URINE NEGATIVE (Neg); OCCULT BLOOD,URINE SMALL (Neg); PROTEIN,URINE 100 mg/dl (Neg)
[2019-11-04] MEDS ORDERED: proCHLORperazine 10 MG/2 ml inj IV ONE (16:35)
[2019-11-04] MEDS ORDERED: pantoprazole 40 MG vial IV ONE (16:35)
[2019-11-04 16:37] LABS: UA COLLECTION TYPE CLN CATCH MIDSTREAM
[2019-11-04 16:38] LABS: COLOR,URINE DARK YELLOW (Yellow)
[2019-11-04 16:39] LABS: WBC,URINE 0-4 /HPF (0-4)
[2019-11-04 16:40] LABS: BACTERIA,URINE NONE SEEN /HPF (Neg); MUCUS STRANDS MODERATE /LPF (Neg); RBC,URINE 0-2 /HPF (0-2); SQUAMOUS EPITHELIAL CELL,UR FEW /LPF (FEW); TRANSITIONAL EPI CELLS,URINE FEW /HPF
[2019-11-04] MEDS ORDERED: PANT-47 PO (17:40)
[2019-11-04] MEDS ORDERED: ONDA8TAB6 PO (17:40)
[2019-11-04 19:52] VITALS: BP 115/75
== END 2019-11-04 19:56 | disposition home or self-care (01) ==
LOC: ER 13:49
DX: R10.13 Epigastric pain (principal); R11.2 Nausea with vomiting, unspecified; K21.9 Gastro-esophageal reflux disease without esophagitis; F12.90 Cannabis use, unspecified, uncomplicated; F17.200 Nicotine dependence, unspecified, uncomplicated; Z95.1 Presence of aortocoronary bypass graft; Z79.899 Other long term (current) drug therapy
CPT/HCPCS: 36415; 74176; 80053; 81001; 83605; 83690; 84145; 85025; 87040; 96361; 96374; 96375; 99285; C9113; J0780; J2405; J7030

== ENCOUNTER 2020-01-15 19:46 | Emergency (ER) | payer MEDICAID, OTHER ==
[~2020-01-15] VITALS: Ht 177.8 cm; Wt 63.6 kg
[~2020-01-15 19:46] MED LIST changes: +ONDA8TAB6 PO; +PANT-47 PO
[2020-01-15] MEDS ORDERED: normal saline 1000ml 1,000 ML IVB ONE (19:59)
[2020-01-15] MEDS ORDERED: normal saline 1000ML IV soln IVB ONE ×3 (20:05→22:40)
[2020-01-15] MEDS ORDERED: ondansetron/PF 4mg/2ml inj IV ONE (20:05)
[2020-01-15] MEDS ORDERED: iohexol 300mg/ml 100ml inj. ONE (20:08)
[2020-01-15] MEDS: diatr meglu/diatrizoate 30ml oral sol.-(3 dose) bottle PO SCH ×3 (20:12→21:32)
[2020-01-15] MEDS: morphine 4 MG/ML inj SYRINge IV PRN ×3 (20:12→22:43)
[2020-01-15 20:28] LABS: BASOPHILS # (AUTO) 0.1 X10'3 (0-0.2); BASOPHILS % (AUTO) 0.2 % (0-1); EOSINOPHILS % (AUTO) 0 % (0-6); HEMATOCRIT 51.5 % (42.0-52.0); HEMOGLOBIN 17.6 g/dl (14.0-17.9); LYMPHOCYTES # (AUTO) 3.2 X10'3 (1.1-4.8); LYMPHOCYTES % (AUTO) 13.1 % (21-51); MEAN CORPUSCULAR HEMOGLOBIN 30.3 PG (27.0-31.0); MEAN CORPUSCULAR HGB CONC 34.2 g/dL (33.0-36.5); MEAN CORPUSCULAR VOLUME 88.8 FL (78-98); MEAN PLATELET VOLUME 8.2 FL (7.4-10.4); MONOCYTES # (AUTO) 1.7 X10'3 (0-0.9); NEUTROPHILS # (AUTO) 19.3 X10'3 (1.8-7.7); NEUTROPHILS % (AUTO) 79.7 % (42-75); PLATELET COUNT 358 X10'3 (140-440); RED BLOOD COUNT 5.81 X10'6 (4.70-6.10); RED CELL DISTRIBUTION WIDTH 12.7 % (11.5-14.5); WHITE BLOOD COUNT 24.3 X10'3 (4.5-11.0)
[2020-01-15] MEDS ORDERED: haloperidol lactate 5mg/ml inj IM ONE (20:40)
[2020-01-15] MEDS ORDERED: diphenhydrAMINE 50 mg/ml inj IV ONE (20:40)
[2020-01-15 20:41] LABS: PARTIAL THROMBOPLASTIN TIME 27 SECONDS (22-32)
[2020-01-15 20:43] LABS: ALANINE AMINOTRANSFERASE 24 U/L (12-78); ALBUMIN 5.1 G/DL (3.4-5.0); ALBUMIN/GLOBULIN RATIO 1.2 (1.1-1.5); ALKALINE PHOSPHATASE 94 IU/L (46-116); ANION GAP 21 (8-16); ASPARTATE AMINO TRANSFERASE 19 U/L (10-37); BILIRUBIN,TOTAL 1.6 MG/DL (0.1-1.0); BLOOD UREA NITROGEN 32 MG/DL (7-18); BUN/CREATININE RATIO 15.2 (5.4-32.0); CALCIUM 10.1 MG/DL (8.5-10.1); CHLORIDE 97 MMOL/L (99-107); GLUCOSE 160 MG/DL (70-104); LIPASE 130 U/L (73-393); POTASSIUM 3.2 MMOL/L (3.5-5.1); SODIUM 138 MMOL/L (135-145); TOTAL CARBON DIOXIDE 20.1 MMOL/L (24-32); TOTAL PROTEIN 9.2 G/DL (6.4-8.2); eGFR 37 ML/MIN
--- NOTE | 2020-01-15 20:53 | NUR ---
Informed Dr Lincoln of LA and WBC. Discussed speeding up CT scan. Pt is to get second dose of gastrograffin now and to CT at [address] Lincoln.
[2020-01-15] MEDS ORDERED: piperacillin/tazo 3.375gm/50ml 50 ML IV ONE (20:55)
--- NOTE | 2020-01-15 20:56 | NUR ---
ct aware to do ct at 2130
[2020-01-15] MEDS ORDERED: NO HOME MEDS (22:06)
[2020-01-15 22:10] LABS: CLARITY,URINE CLEAR (Clear); COLOR,URINE YELLOW (Yellow); GLUCOSE, URINE NEGATIVE (Neg); KETONES,URINE NEGATIVE (Neg); LEUKOCYTE ESTERASE ,URINE NEGATIVE (Neg); NITRITES, URINE NEGATIVE (Neg); OCCULT BLOOD,URINE SMALL (Neg); PROTEIN,URINE 100 mg/dl (Neg); UROBILINOGEN,URINE 0.2 E.U/dL (0.2-1.0)
[2020-01-15 22:12] LABS: UA COLLECTION TYPE CLN CATCH MIDSTREAM
[2020-01-15 22:16] LABS: RBC,URINE 0-2 /HPF (0-2); WBC,URINE NONE SEEN /HPF (0-4)
[2020-01-15 22:17] LABS: BACTERIA,URINE NONE SEEN /HPF (Neg); SQUAMOUS EPITHELIAL CELL,UR FEW /LPF (FEW)
[2020-01-16 01:19] VITALS: BP 120/73
[2020-01-16] MEDS ORDERED: CIPR-259 PO (17:53)
[2020-01-16] MEDS ORDERED: ONDA4TAB6 PO (17:53)
[2020-01-16] MEDS ORDERED: METR500T PO (17:53)
== END 2020-01-16 01:20 | disposition home or self-care (01) ==
LOC: ER 19:49
DX: R11.15 Cyclical vomiting syndrome unrelated to migraine (principal); D72.829 Elevated white blood cell count, unspecified; E86.0 Dehydration; R10.13 Epigastric pain; K21.9 Gastro-esophageal reflux disease without esophagitis; F12.90 Cannabis use, unspecified, uncomplicated; Z79.899 Other long term (current) drug therapy
CPT/HCPCS: 36415; 71045; 74177; 80053; 81001; 83605; 83690; 84145; 85025; 85610; 85730; 87040; 96365; 96372; 96375; 96376; 99285; J1200; J1630; J2270; J2405; J2543; J7030; Q9963; Q9967

== ENCOUNTER 2020-01-16 15:53 | Emergency (ER) | payer MEDICAID, OTHER ==
[~2020-01-16] VITALS: Ht 177.8 cm; Wt 65.0 kg
[~2020-01-16 15:53] MED LIST changes: +NO HOME MEDS; -ONDA4TAB6 PO; -ONDA8TAB6 PO; -PANT-47 PO; -TRAM50TA2 PO
--- NOTE | 2020-01-16 16:34 | NUR ---
informed patient we need urine sample.
[2020-01-16 16:44] LABS: EOSINOPHILS # (AUTO) 0.1 X10'3 (0-0.9); LYMPHOCYTES # (AUTO) 2.4 X10'3 (1.1-4.8); MONOCYTES # (AUTO) 0.8 X10'3 (0-0.9); MONOCYTES % (AUTO) 5.1 % (2-12)
[2020-01-16 16:46] LABS: BASOPHILS # (AUTO) 0.1 X10'3 (0-0.2); BASOPHILS % (AUTO) 0.4 % (0-1); EOSINOPHILS % (AUTO) 0.3 % (0-6); HEMATOCRIT 51.8 % (42.0-52.0); HEMOGLOBIN 17.8 g/dl (14.0-17.9); LYMPHOCYTES % (AUTO) 15.4 % (21-51); MEAN CORPUSCULAR HGB CONC 34.4 g/dL (33.0-36.5); MEAN PLATELET VOLUME 7.8 FL (7.4-10.4); NEUTROPHILS # (AUTO) 12.3 X10'3 (1.8-7.7); NEUTROPHILS % (AUTO) 78.8 % (42-75); PLATELET COUNT 258 X10'3 (140-440); RED BLOOD COUNT 5.76 X10'6 (4.70-6.10); RED CELL DISTRIBUTION WIDTH 12.9 % (11.5-14.5); WHITE BLOOD COUNT 15.7 X10'3 (4.5-11.0)
[2020-01-16 17:00] LABS: ALANINE AMINOTRANSFERASE 26 U/L (12-78); ALBUMIN 5.1 G/DL (3.4-5.0); ALBUMIN/GLOBULIN RATIO 1.1 (1.1-1.5); ALKALINE PHOSPHATASE 94 IU/L (46-116); ANION GAP 17 (8-16); ASPARTATE AMINO TRANSFERASE 27 U/L (10-37); BILIRUBIN,TOTAL 1.9 MG/DL (0.1-1.0); BLOOD UREA NITROGEN 13 MG/DL (7-18); BUN/CREATININE RATIO 10.2 (5.4-32.0); CALCIUM 9.9 MG/DL (8.5-10.1); CHLORIDE 100 MMOL/L (99-107); CREATININE 1.28 MG/DL (0.60-1.10); GLUCOSE 111 MG/DL (70-104); LIPASE 182 U/L (73-393); SODIUM 139 MMOL/L (135-145); TOTAL CARBON DIOXIDE 22.2 MMOL/L (24-32); TOTAL PROTEIN 9.7 G/DL (6.4-8.2); eGFR 66 ML/MIN
[2020-01-16] MEDS ORDERED: ketorolac tromethamine 15mg/ml inj. IV ONE (17:15)
[2020-01-16] MEDS ORDERED: haloperidol lactate 5mg/ml inj IM ONE (17:15)
[2020-01-16] MEDS ORDERED: normal saline 1000ML IV soln IVB ONE (17:15)
[2020-01-16] MEDS: potassium Cl 10 mEq/100mL bag IV SCH ×2 (17:22→18:15)
--- NOTE | 2020-01-16 17:23 | NUR ---
reminded patient that a urine sample is needed. informed patient that a straight cath would be required if unable to provide sample.
[2020-01-16] MEDS ORDERED: METR500T PO (17:53)
[2020-01-16] MEDS ORDERED: ONDA4TAB6 PO (17:53)
[2020-01-16] MEDS ORDERED: CIPR-259 PO (17:53)
[2020-01-16 18:15] LABS: CLARITY,URINE CLEAR (Clear); COLOR,URINE YELLOW (Yellow); GLUCOSE, URINE NEGATIVE (Neg); KETONES,URINE 15 mg/dl (Neg); LEUKOCYTE ESTERASE ,URINE NEGATIVE (Neg); NITRITES, URINE NEGATIVE (Neg); OCCULT BLOOD,URINE TRACE-LYSED (Neg); PROTEIN,URINE TRACE mg/dl (Neg)
[2020-01-16] MEDS ORDERED: potassium Cl 20 mEq SR tablet PO STA (18:20)
[2020-01-16 18:31] LABS: UA COLLECTION TYPE URINAL
[2020-01-16 18:34] LABS: BACTERIA,URINE NONE SEEN /HPF (Neg); MUCUS STRANDS MODERATE /LPF (Neg); SQUAMOUS EPITHELIAL CELL,UR FEW /LPF (FEW); WBC,URINE 0-4 /HPF (0-4)
[2020-01-16 18:35] VITALS: BP 118/76
[2020-01-16 18:35] LABS: AMORPHOUS PHOSPHATES 1+
== END 2020-01-16 18:38 | disposition home or self-care (01) ==
LOC: ER 15:54
DX: R10.84 Generalized abdominal pain (principal); K52.9 Noninfective gastroenteritis and colitis, unspecified; E87.6 Hypokalemia; K21.9 Gastro-esophageal reflux disease without esophagitis; F12.90 Cannabis use, unspecified, uncomplicated; R11.2 Nausea with vomiting, unspecified; R19.7 Diarrhea, unspecified; Z72.89 Other problems related to lifestyle; Z79.899 Other long term (current) drug therapy
CPT/HCPCS: 36415; 80053; 81001; 83690; 85025; 96361; 96372; 96374; 99284; J1630; J1885; J3480; J7030

== ENCOUNTER 2020-03-15 11:04 | Inpatient (IN) | payer MEDICAID, OTHER ==
[~2020-03-15] VITALS: Ht 177.8 cm; Wt 63.2 kg
[~2020-03-15 11:04] MED LIST changes: +ONDA4TAB6 PO
[2020-03-15] MEDS ORDERED: normal saline 1000ML IV soln IVB ONE (11:25)
[2020-03-15] MEDS ORDERED: LORazepam 2 mg/ml vial IV ONE (11:25)
[2020-03-15] MEDS ORDERED: haloperidol lactate 5mg/ml inj IM ONE (11:25)
[2020-03-15 11:58] LABS: BASOPHILS # (AUTO) 0.1 X10'3 (0-0.2); BASOPHILS % (AUTO) 0.2 % (0-1); EOSINOPHILS # (AUTO) 0.1 X10'3 (0-0.9); EOSINOPHILS % (AUTO) 0.3 % (0-6); HEMATOCRIT 55.3 % (42.0-52.0); LYMPHOCYTES # (AUTO) 3.1 X10'3 (1.1-4.8); LYMPHOCYTES % (AUTO) 10.9 % (21-51); MEAN CORPUSCULAR HEMOGLOBIN 30.9 PG (27.0-31.0); MEAN CORPUSCULAR HGB CONC 34.9 g/dL (33.0-36.5); MEAN CORPUSCULAR VOLUME 88.6 FL (78-98); MEAN PLATELET VOLUME 7.9 FL (7.4-10.4); MONOCYTES # (AUTO) 2.1 X10'3 (0-0.9); MONOCYTES % (AUTO) 7.2 % (2-12); NEUTROPHILS # (AUTO) 23.5 X10'3 (1.8-7.7); NEUTROPHILS % (AUTO) 81.4 % (42-75); PLATELET COUNT 455 X10'3 (140-440); RED BLOOD COUNT 6.24 X10'6 (4.70-6.10); RED CELL DISTRIBUTION WIDTH 13.1 % (11.5-14.5)
[2020-03-15 12:02] LABS: HEMOGLOBIN 19.3 g/dl (14.0-17.9); WHITE BLOOD COUNT 28.8 X10'3 (4.5-11.0)
[2020-03-15 12:08] LABS: ALANINE AMINOTRANSFERASE 30 U/L (12-78); ALBUMIN 6.2 G/DL (3.4-5.0); ALBUMIN/GLOBULIN RATIO 1.4 (1.1-1.5); ALKALINE PHOSPHATASE 111 IU/L (46-116); ANION GAP 22 (8-16); ASPARTATE AMINO TRANSFERASE 28 U/L (10-37); BILIRUBIN,TOTAL 1.3 MG/DL (0.1-1.0); BLOOD UREA NITROGEN 38 MG/DL (7-18); BUN/CREATININE RATIO 8.9 (5.4-32.0); CALCIUM 11.1 MG/DL (8.5-10.1); CHLORIDE 94 MMOL/L (99-107); CREATININE 4.27 MG/DL (0.60-1.10); GLUCOSE 165 MG/DL (70-104); LIPASE 102 U/L (73-393); SODIUM 136 MMOL/L (135-145); TOTAL CARBON DIOXIDE 19.9 MMOL/L (24-32); TOTAL PROTEIN 10.7 G/DL (6.4-8.2); eGFR 16 ML/MIN
[2020-03-15 12:09] LABS: POTASSIUM 3.8 MMOL/L (3.5-5.1)
[2020-03-15] MEDS ORDERED: LIDOcaine 2% 10ml TOPICAL JELLY (Urojet) MM ONE (12:30)
[2020-03-15 12:35] LABS: TOTAL CELLS COUNTED 100
[2020-03-15 12:36] LABS: PLATELET ESTIMATE INCREASED
[2020-03-15] MEDS ORDERED: piperacillin/tazo 3.375gm/50ml 50 ML IV ONE (12:45)
[2020-03-15 12:58] LABS: CLARITY,URINE TURBID (Clear); COLOR,URINE AMBER (Yellow); GLUCOSE, URINE NEGATIVE (Neg); KETONES,URINE TRACE mg/dl (Neg); LEUKOCYTE ESTERASE ,URINE NEGATIVE (Neg); NITRITES, URINE NEGATIVE (Neg); OCCULT BLOOD,URINE MODERATE (Neg); PH,URINE 5.5 (4.8-8.0); PROTEIN,URINE >=300 mg/dl (Neg)
[2020-03-15 13:05] LABS: URINE AMPHETAMINE SCREEN NEGATIVE (Neg); URINE BARBITUATE SCREEN NEGATIVE (Neg); URINE BENZODIAZEPINES SCREEN NEGATIVE (Neg); URINE CANNABINOID SCREEN POSITIVE (Neg); URINE COCAINE SCREEN NEGATIVE (Neg); URINE METHADONE SCREEN NEGATIVE (Neg); URINE OPIATE SCREEN NEGATIVE (Neg); URINE PHENCYCLIDINE SCREEN NEGATIVE (Neg)
[2020-03-15 13:15] LABS: UA COLLECTION TYPE STRAIGHT CATH
[2020-03-15 13:18] LABS: WBC,URINE 20-30 /HPF (0-4)
[2020-03-15 13:19] LABS: BACTERIA,URINE 1+ /HPF (Neg); MUCUS STRANDS FEW /LPF (Neg); SQUAMOUS EPITHELIAL CELL,UR FEW /LPF (FEW)
--- NOTE | 2020-03-15 13:19 | NUR ---
Patient appears to be sitting comfortably in much less distress from nausea and abdominal discomfort.
[2020-03-15 13:20] LABS: CELLULAR CAST 0-4 /LPF (NEGATIVE); FINE GRANULAR CAST 0-3 /LPF (NEGATIVE)
[2020-03-15 13:23] LABS: CREATINE KINASE 210 U/L (39-308)
[2020-03-15] MEDS ORDERED: magnesium hydroxide 30ml (MOM) UD suspension PO PRN (13:35)
[2020-03-15] MEDS ORDERED: magnesium 2GM in 50ml NS 50 ML IV PRN (13:35)
[2020-03-15] MEDS ORDERED: diphenhydrAMINE 25mg capsule PO PRN (13:35)
[2020-03-15] MEDS ORDERED: potassium Cl 20 mEq SR tablet PO PRN (13:35)
[2020-03-15] MEDS ORDERED: potassium CL 10mEq/100ml bag 100 ML IV PRN ×2 (13:35)
[2020-03-15] MEDS ORDERED: magnesium Cl slow-release 64mg tablet PO PRN (13:35)
[2020-03-15] MEDS ORDERED: mag hydrox/Alum hydrox/simeth 30ml oral suspension PO PRN (13:35)
[2020-03-15] MEDS ORDERED: magnesium 4gm in 100ml NS 100 ML IV PRN (13:35)
[2020-03-15] MEDS ORDERED: acetaminophen 650mg rectal suppository RC PRN (13:35)
[2020-03-15] MEDS ORDERED: HYDROcodone/acetaminophen 5mg/325mg tablet PO PRN (13:35)
[2020-03-15] MEDS ORDERED: acetaminophen 325mg tablet PO PRN ×2 (13:35)
[2020-03-15] MEDS ORDERED: bisacodyl 10mg suppository rectal RC PRN (13:35)
[2020-03-15] MEDS ORDERED: ondansetron/PF 4mg/2ml inj IV PRN (13:35)
[2020-03-15] MEDS ORDERED: HYDROcodone/acetaminophen 10/325mg tab PO PRN (13:35)
[2020-03-15] MEDS ORDERED: morphine 2 MG/ML inj. syringe IV PRN ×2 (13:35)
[2020-03-15] MEDS ORDERED: azithromycin 250mg tablet PO ONE (13:55)
[2020-03-15 14:18] LABS: HEMOGLOBIN A1C 5.1 % (4.5-6.2)
[2020-03-15] MEDS: normal saline 1000ml 1,000 ML IV SCH (14:37)
[2020-03-15] MEDS ORDERED: OMEP20CA15 PO (15:18)
--- NOTE | 2020-03-15 15:35 | NUR ---
RECEIVED TELEPHONE REPORT FROM EZE PLUNKETT
--- NOTE | 2020-03-15 15:53 | NUR ---
CALL TO DANIEL, PHARMACIST. ZOSYN IV WAS ADM AT 1356 IN ER, NEXT DOSE DUE AT 1600. DAINEL STATES"IT IS TOO SOON FOR THAT DOSE, NON ADMINISTER THE 1600 DOSE".
[2020-03-15] MEDS: piperacillin/tazo 3.375gm/50ml 50 ML IV SCH (15:56)
--- NOTE | 2020-03-15 16:40 | NUR ---
C/O ADRIANO, STATES "I DON'T WANT ZOFRAN, IT DOES NOT WORK" STARR HAYWOOD I Addendum: 03/15/20 at 1642 by Walker Carrillo RN IV.
[2020-03-15] MEDS: metoclopramide 5 mg/ml inj IV PRN (16:47)
--- NOTE | 2020-03-15 16:58 | NUR ---
PAGER ID: [phone] MESSAGE: DR. SANDRA, [id number]/JEAN-PIERRE, PLEASE CALL DERECK [phone]. TY.
[2020-03-15 17:02] VITALS: BP 130/93
--- NOTE | 2020-03-15 17:18 | NUR ---
DR. SANDRA NOTIFIED OF NAUSEA, REGLAN ADM, AFTER ABOUT 15 MIN NAUSEA RELIEVED, PT STATES AFTER USING BATHROOM"I HAD A DARK BLACK BOWEL MOVEMENT"
[2020-03-15 18:00] VITALS: BP 142/81
--- NOTE | 2020-03-15 18:43 | NUR ---
Problems reprioritized. Patient report given, questions answered & plan of care reviewed with basim rn.
[2020-03-15] MEDS: K and/or MAG REPLACEMENT MC SCH (20:00)
[2020-03-15] MEDS: heparin, porcine 5000 units/ml vial SQ SCH (20:37)
[2020-03-15 22:30] VITALS: BP 141/80
[2020-03-15] MEDS ORDERED: pantoprazole 40 MG vial IV ONE (22:50)
[2020-03-16] MEDS: piperacillin/tazo 3.375gm/50ml 50 ML IV SCH ×4 (00:05→23:47)
[2020-03-16] MEDS: normal saline 1000ml 1,000 ML IV SCH ×4 (00:06→14:38)
[2020-03-16 03:30] VITALS: BP 128/82
[2020-03-16 06:00] VITALS: BP 123/68
[2020-03-16 06:10] LABS: BASOPHILS % (AUTO) 0.2 % (0-1); EOSINOPHILS % (AUTO) 0.3 % (0-6); HEMATOCRIT 42.2 % (42.0-52.0); HEMOGLOBIN 14.5 g/dl (14.0-17.9); LYMPHOCYTES # (AUTO) 2.8 X10'3 (1.1-4.8); LYMPHOCYTES % (AUTO) 20.8 % (21-51); MEAN CORPUSCULAR HEMOGLOBIN 30.8 PG (27.0-31.0); MEAN CORPUSCULAR HGB CONC 34.4 g/dL (33.0-36.5); MEAN CORPUSCULAR VOLUME 89.4 FL (78-98); MEAN PLATELET VOLUME 8.2 FL (7.4-10.4); MONOCYTES % (AUTO) 7.4 % (2-12); NEUTROPHILS # (AUTO) 9.7 X10'3 (1.8-7.7); NEUTROPHILS % (AUTO) 71.3 % (42-75); PLATELET COUNT 229 X10'3 (140-440); RED BLOOD COUNT 4.72 X10'6 (4.70-6.10); RED CELL DISTRIBUTION WIDTH 12.5 % (11.5-14.5); WHITE BLOOD COUNT 13.6 X10'3 (4.5-11.0)
[2020-03-16 06:15] LABS: ALANINE AMINOTRANSFERASE 22 U/L (12-78); ALBUMIN 3.7 G/DL (3.4-5.0); ALBUMIN/GLOBULIN RATIO 1.2 (1.1-1.5); ALKALINE PHOSPHATASE 67 IU/L (46-116); ANION GAP 9 (8-16); ASPARTATE AMINO TRANSFERASE 27 U/L (10-37); BILIRUBIN,TOTAL 1.3 MG/DL (0.1-1.0); BLOOD UREA NITROGEN 20 MG/DL (7-18); BUN/CREATININE RATIO 17.7 (5.4-32.0); CALCIUM 8.6 MG/DL (8.5-10.1); CHLORIDE 105 MMOL/L (99-107); CHOL/HDL RATIO 3.4 (0.00-4.99); CHOLESTEROL 103 MG/DL (0-200); CREATININE 1.13 MG/DL (0.60-1.10); GLUCOSE 104 MG/DL (70-104); HDL CHOLESTEROL 30 MG/DL (35-60); LACTATE DEHYDROGENASE 134 U/L (85-227); LDL CHOLESTEROL 63 MG/DL (50-100); MAGNESIUM 2.2 MG/DL (1.5-2.4); PHOSPHORUS 3.9 MG/DL (2.3-4.5); POTASSIUM 3.3 MMOL/L (3.5-5.1); SODIUM 140 MMOL/L (135-145); TOTAL CARBON DIOXIDE 25.8 MMOL/L (24-32); TOTAL PROTEIN 6.7 G/DL (6.4-8.2); TRIGLYCERIDES 99 MG/DL (20-135); eGFR 76 ML/MIN
--- NOTE | 2020-03-16 06:29 | NUR ---
Patient in room PCU 3025. I have received report from EZE MAHMOOD and had the opportunity to ask questions and assume patient care.
[2020-03-16 06:47] LABS: RHEUM FACTOR QUAL REFLEX TITER NEGATIVE (Neg)
[2020-03-16] MEDS: pantoprazole 40 MG vial IV SCH ×2 (07:07→21:32)
[2020-03-16] MEDS: heparin, porcine 5000 units/ml vial SQ SCH ×2 (07:39→21:33)
[2020-03-16] MEDS: potassium Cl 20 mEq SR tablet PO PRN ×3 (07:40→21:34)
[2020-03-16] MEDS: K and/or MAG REPLACEMENT MC SCH ×2 (07:53→20:00)
[2020-03-16 08:12] LABS: TOTAL PROTEIN,URINE RANDOM 235.6 MG/DL
[2020-03-16 11:00] VITALS: BP 126/85
--- NOTE | 2020-03-16 11:13 | NUR ---
PAGER ID: [phone] MESSAGE: DR. SANDRA,[id number]/JEAN-PIERRE, NO N/V THIS AM. ABD PAIN10, JUST ADM NORCO. B/C 21/07.13, GFR 76. CAN WE CHANGE DIET TO REGULAR? CONTINUE NS AT 150CC/HOUR? DERECK RUIZ [id number].SARA
--- NOTE | 2020-03-16 12:22 | NUR ---
DR. PATEL IN, NOTIFIED OF PT C/O PAIN WITH NORCO 5/325 Q 6 HOURS. HELD PHOSLO TODAY FOR PHOS LEVEL 2.2. STATES "GOOD TO HOLD THE PHOSLO TODAY. I DON'T FEEL COMFORTABLE GIVING HIM ANY MORE PAIN MEDICATION R/T HIS NUTRITIONAL STATUS".
[2020-03-16] MEDS: metoclopramide 5 mg/ml inj IV PRN (13:04)
[2020-03-16 14:07] LABS: HIV ANTIBODY 1&2 RAPID NON-REACTIVE (Neg)
[2020-03-16 15:00] VITALS: BP 147/87
--- NOTE | 2020-03-16 15:06 | NUR ---
PAGER ID: [phone] MESSAGE: DR. SANDRA, [id number], CURRENTLY C/O 02/08 ABD PAIN, NAUSEA, NO VIMITING AT THIS TIME. REGLAN 10MG IV ADM AT 1304. DOES NOT WANT ZOFRAN R/T HX OF NOT HELPING. NORCO 10 AT 1101, MS 2 MG IV AT 1409. DERECK [id number].TY
--- NOTE | 2020-03-16 15:57 | NUR ---
GAVE SECOND KDUR 20MEQ REPLACEMENT AT 153, HAD TO WAIT TILL PT FELT WELL ENOUGH TO TAKE, R/T NAUSEA/ABD PAIN. WILL REPORT TO NOC RN REGARDING LAST DSE DUE NOW AT 193. PT RESINT IN BED WITH EYES CLOSED. HAD STATED "I JUST WANT TO SLEEP". APPEARS COMFORTABLE AT THIS TIME.
[2020-03-16 18:00] VITALS: BP 146/85
--- NOTE | 2020-03-16 18:07 | NUR ---
PAGER ID: [phone] MESSAGE: DR. SANDRA, [id number]/JEAN-PIERRE, ADM REGLAN AT 1304, DID NOT ATTEMPT TO EAT DINNER. HE IS NOW DRY HEAVING. REGLAN CANNOT BE REPEATED FOR ANOTHER HOUR. PT SAYS ELVIA DOES NOT WORK FOR HIM. DERECK, [phone], TY/
--- NOTE | 2020-03-16 18:43 | NUR ---
Problems reprioritized. Patient report given, questions answered & plan of care reviewed with PATY RN. .
[2020-03-16] MEDS: lactobacillus rhamnosus 10,000 MMU CELLS/CAPSULE PO SCH (21:34)
[2020-03-16] MEDS ORDERED: pantoprazole 40 MG vial IV ONE ×2 (21:45→21:50)
[2020-03-16 22:00] VITALS: BP 129/79
[2020-03-17 03:00] VITALS: BP 118/79
[2020-03-17] MEDS: normal saline 1000ml 1,000 ML IV SCH (04:21)
[2020-03-17 04:28] LABS: BASOPHILS % (AUTO) 0.2 % (0-1); EOSINOPHILS # (AUTO) 0.2 X10'3 (0-0.9); EOSINOPHILS % (AUTO) 1.9 % (0-6); HEMATOCRIT 41.6 % (42.0-52.0); HEMOGLOBIN 14.4 g/dl (14.0-17.9); LYMPHOCYTES # (AUTO) 3.2 X10'3 (1.1-4.8); LYMPHOCYTES % (AUTO) 38.8 % (21-51); MEAN CORPUSCULAR HEMOGLOBIN 30.7 PG (27.0-31.0); MEAN CORPUSCULAR HGB CONC 34.7 g/dL (33.0-36.5); MEAN CORPUSCULAR VOLUME 88.5 FL (78-98); MEAN PLATELET VOLUME 7.4 FL (7.4-10.4); MONOCYTES # (AUTO) 0.7 X10'3 (0-0.9); MONOCYTES % (AUTO) 8.4 % (2-12); NEUTROPHILS # (AUTO) 4.2 X10'3 (1.8-7.7); NEUTROPHILS % (AUTO) 50.7 % (42-75); PLATELET COUNT 209 X10'3 (140-440); RED CELL DISTRIBUTION WIDTH 12.5 % (11.5-14.5); WHITE BLOOD COUNT 8.2 X10'3 (4.5-11.0)
[2020-03-17 04:41] LABS: ALANINE AMINOTRANSFERASE 24 U/L (12-78); ALBUMIN 3.6 G/DL (3.4-5.0); ALBUMIN/GLOBULIN RATIO 1.3 (1.1-1.5); ALKALINE PHOSPHATASE 61 IU/L (46-116); ANION GAP 7 (8-16); ASPARTATE AMINO TRANSFERASE 20 U/L (10-37); BILIRUBIN,TOTAL 1.7 MG/DL (0.1-1.0); BLOOD UREA NITROGEN 11 MG/DL (7-18); BUN/CREATININE RATIO 11.8 (5.4-32.0); CALCIUM 8.4 MG/DL (8.5-10.1); CHLORIDE 105 MMOL/L (99-107); CREATININE 0.93 MG/DL (0.60-1.10); GLUCOSE 100 MG/DL (70-104); MAGNESIUM 2.1 MG/DL (1.5-2.4); PHOSPHORUS 3.4 MG/DL (2.3-4.5); POTASSIUM 3.8 MMOL/L (3.5-5.1); SODIUM 139 MMOL/L (135-145); TOTAL PROTEIN 6.4 G/DL (6.4-8.2); eGFR > 90 ML/MIN
--- NOTE | 2020-03-17 06:49 | NUR ---
[place] documentation: I have reviewed and agree with all interventions, assessments performed and documented by Yolanda LOO.[place] Medication Administration: For this medication-pass time frame, all medication were reviewed, dispensed, administered and documented per hospital policy by Yolanda LOO with Crystal LOO.
--- NOTE | 2020-03-17 06:49 | NUR ---
pt showered self last night and slept well most of the night. thankful for care. [place] better after his shower. no compliant of nausea. no vomiting
--- NOTE | 2020-03-17 06:50 | NUR ---
Problems reprioritized. Patient report given, questions answered & plan of care reviewed with Yvan LOO.
[2020-03-17 07:19] VITALS: BP 140/84
[2020-03-17] MEDS ORDERED: pantoprazole 40 MG vial IV SCH (08:00)
[2020-03-17] MEDS: K and/or MAG REPLACEMENT MC SCH (08:00)
[2020-03-17] MEDS: lactobacillus rhamnosus 10,000 MMU CELLS/CAPSULE PO SCH (08:04)
[2020-03-17] MEDS: piperacillin/tazo 3.375gm/50ml 50 ML IV SCH (08:04)
[2020-03-17] MEDS: heparin, porcine 5000 units/ml vial SQ SCH (08:05)
[2020-03-17 09:13] LABS: HBSAG SCREEN Negative (Negative); HEPATITIS C ANTIBODY <0.1 s/co ratio (0.0-0.9)
[2020-03-17] MEDS ORDERED: LACT1CAP26 PO (09:27)
[2020-03-17] MEDS ORDERED: ONDA4TAB6 PO (09:27)
[2020-03-17] MEDS ORDERED: AMOX-419 PO (09:27)
[2020-03-17] MEDS ORDERED: PANT40TA54 PO (09:27)
[2020-03-17 11:00] VITALS: BP 128/75
--- NOTE | 2020-03-17 11:29 | NUR ---
PATIENT ALERT AND ORIENTED WITH NO COMPLAINTS. DISCUSSED WITH PATIENT DISCHARGE TEACHING AND NEW PRESCRIPTIONS AND PRESCRIPTION CHANGE. PATIENT VERBALIZED UNDERSTANDING OF TEACHING. PATIENT DC'D WITH ALL PERSONAL BELONGINGS IN WHEELCHAIR ACCOMPANIED BY X1 PCT TO LOBBY PATIENT STATES GIRLFRIEND WAITING AND WILL BE HIS TRANSPORT HOME.
[2020-03-17 14:27] LABS: COMPLEMENT C3, SERUM 113 mg/dL (82-167); COMPLEMENT C4, SERUM 17 mg/dL (14-44)
[2020-03-17 19:44] LABS: ANTINUCLEAR ANTIBODIES Negative (Negative)
[2020-03-19 15:46] LABS: ATYPICAL PANCA <1:20 titer (Neg:<1:20); CYTOPLASMIC (C-ANCA) <1:20 titer (Neg:<1:20); PERINUCLEAR (P-ANCA) <1:20 titer (Neg:<1:20)
== END 2020-03-17 11:29 | disposition home or self-care (01) | DRG 918 ==
LOC: ER 11:05 → ED HOLD 13:34 → PCU 3S 15:53
PROVIDERS: ADMIT Family Medicine; ATTEND Family Medicine
DX: T40.7X1A Poisoning by cannabis (derivatives), accidental (unintentional), initial encounter (principal); N17.9 Acute kidney failure, unspecified; E87.2 Acidosis; K29.70 Gastritis, unspecified, without bleeding; K21.9 Gastro-esophageal reflux disease without esophagitis; F12.19 Cannabis abuse with unspecified cannabis-induced disorder; E83.52 Hypercalcemia; D72.829 Elevated white blood cell count, unspecified; D75.1 Secondary polycythemia; E86.0 Dehydration; Z87.891 Personal history of nicotine dependence; Y92.89 Other specified places as the place of occurrence of the external cause; Z95.1 Presence of aortocoronary bypass graft
CPT/HCPCS: 36415; 71045; 74176; 80053; 80061; 80305; 81001; 82550; 82570; 83036; 83605; 83615; 83690; 83735; 84100; 84145; 84156; 84300; 85007; 85025; 85651; 86038; 86060; 86160; 86256; 86430; 86592; 86703; 86803; 87040; 87081; 87088; 87207; 87340; 87491; 93005; 96361; 96372; 96374; 99291; C9113; G0378; J1630; J1644; J2060; J2270; J2543; J2765; J7030

== ENCOUNTER 2020-05-30 12:23 | Emergency (ER) | payer MEDICAID ==
[~2020-05-30] VITALS: Ht 177.8 cm; Wt 68.2 kg
[~2020-05-30 12:23] MED LIST changes: +LACT1CAP26 PO; -NO HOME MEDS; +PANT40TA54 PO
[2020-05-30] MEDS ORDERED: proCHLORperazine 10 MG/2 ml inj IV ONE (12:45)
[2020-05-30] MEDS ORDERED: normal saline 1000ML IV soln IVB ONE ×3 (12:45→14:25)
[2020-05-30] MEDS ORDERED: diphenhydrAMINE 50 mg/ml inj IV ONE (12:45)
[2020-05-30] MEDS ORDERED: haloperidol lactate 5mg/ml inj IM ONE (12:45)
--- NOTE | 2020-05-30 12:51 | NUR ---
HX: CYCLIC VOMITING. PT SMOKES MARIGUANA
[2020-05-30 13:25] LABS: BASOPHILS # (AUTO) 0.1 X10'3 (0-0.2); BASOPHILS % (AUTO) 0.3 % (0-1); EOSINOPHILS % (AUTO) 0.2 % (0-6); HEMATOCRIT 51.8 % (42.0-52.0); LYMPHOCYTES # (AUTO) 2.9 X10'3 (1.1-4.8); LYMPHOCYTES % (AUTO) 12.4 % (21-51); MEAN CORPUSCULAR HEMOGLOBIN 30.7 PG (27.0-31.0); MEAN CORPUSCULAR HGB CONC 34.8 g/dL (33.0-36.5); MEAN CORPUSCULAR VOLUME 88.3 FL (78-98); MEAN PLATELET VOLUME 7.9 FL (7.4-10.4); MONOCYTES # (AUTO) 1.9 X10'3 (0-0.9); MONOCYTES % (AUTO) 8.1 % (2-12); NEUTROPHILS # (AUTO) 18.2 X10'3 (1.8-7.7); PLATELET COUNT 415 X10'3 (140-440); RED BLOOD COUNT 5.86 X10'6 (4.70-6.10); RED CELL DISTRIBUTION WIDTH 12.8 % (11.5-14.5)
[2020-05-30 13:35] LABS: ALANINE AMINOTRANSFERASE 32 U/L (12-78); ALBUMIN 5.6 G/DL (3.4-5.0); ALBUMIN/GLOBULIN RATIO 1.4 (1.1-1.5); ALKALINE PHOSPHATASE 119 IU/L (46-116); ANION GAP 18 (8-16); ASPARTATE AMINO TRANSFERASE 26 U/L (10-37); BILIRUBIN,TOTAL 1.3 MG/DL (0.1-1.0); BLOOD UREA NITROGEN 30 MG/DL (7-18); BUN/CREATININE RATIO 12.8 (5.4-32.0); CALCIUM 10.2 MG/DL (8.5-10.1); CHLORIDE 100 MMOL/L (99-107); CREATININE 2.35 MG/DL (0.60-1.10); GLUCOSE 140 MG/DL (70-104); LIPASE 84 U/L (73-393); POTASSIUM 4.1 MMOL/L (3.5-5.1); SODIUM 141 MMOL/L (135-145); TOTAL CARBON DIOXIDE 23.4 MMOL/L (24-32); TOTAL PROTEIN 9.5 G/DL (6.4-8.2); eGFR 33 ML/MIN
[2020-05-30 14:40] VITALS: BP 106/62
[2020-05-30 15:48] LABS: ANION GAP 12 (8-16); BLOOD UREA NITROGEN 26 MG/DL (7-18); BUN/CREATININE RATIO 14.1 (5.4-32.0); CALCIUM 8.3 MG/DL (8.5-10.1); CHLORIDE 107 MMOL/L (99-107); CREATININE 1.84 MG/DL (0.60-1.10); GLUCOSE 99 MG/DL (70-104); POTASSIUM 3.6 MMOL/L (3.5-5.1); SODIUM 144 MMOL/L (135-145); TOTAL CARBON DIOXIDE 25.5 MMOL/L (24-32); eGFR 43 ML/MIN
== END 2020-05-30 17:05 | disposition home or self-care (01) ==
LOC: ER 12:24
DX: R11.15 Cyclical vomiting syndrome unrelated to migraine (principal); Z20.828 Contact with and (suspected) exposure to other viral communicable diseases; R10.84 Generalized abdominal pain; F12.90 Cannabis use, unspecified, uncomplicated; K21.9 Gastro-esophageal reflux disease without esophagitis; Z95.1 Presence of aortocoronary bypass graft; Z79.899 Other long term (current) drug therapy
CPT/HCPCS: 36415; 80048; 80053; 83605; 83690; 85025; 87635; 96361; 96372; 96374; 96375; 99284; J0780; J1200; J1630; J7030

== ENCOUNTER 2020-06-01 15:40 | Emergency (ER) | payer MEDICAID ==
[~2020-06-01] VITALS: Ht 177.8 cm; Wt 61.8 kg
[2020-06-01 16:30] LABS: BASOPHILS # (AUTO) 0.1 X10'3 (0-0.2); EOSINOPHILS # (AUTO) 0.1 X10'3 (0-0.9); EOSINOPHILS % (AUTO) 0.4 % (0-6); RED BLOOD COUNT 6.17 X10'6 (4.70-6.10); WHITE BLOOD COUNT 23.7 X10'3 (4.5-11.0)
[2020-06-01] MEDS ORDERED: haloperidol lactate 5mg/ml inj IM ONE (16:30)
[2020-06-01] MEDS ORDERED: LORazepam 2 mg/ml vial IV ONE (16:30)
[2020-06-01] MEDS ORDERED: normal saline 1000ML IV soln IV ONE (16:30)
[2020-06-01 16:39] LABS: HEMATOCRIT 54.3 % (42.0-52.0); MEAN CORPUSCULAR HEMOGLOBIN 30.9 PG (27.0-31.0); MEAN CORPUSCULAR VOLUME 87.9 FL (78-98)
[2020-06-01 16:40] LABS: BASOPHILS % (AUTO) 0.3 % (0-1); LYMPHOCYTES # (AUTO) 3.3 X10'3 (1.1-4.8); LYMPHOCYTES % (AUTO) 14.1 % (21-51); MEAN CORPUSCULAR HGB CONC 35.2 g/dL (33.0-36.5); MEAN PLATELET VOLUME 8.1 FL (7.4-10.4); MONOCYTES # (AUTO) 1.7 X10'3 (0-0.9); MONOCYTES % (AUTO) 7.1 % (2-12); NEUTROPHILS # (AUTO) 18.5 X10'3 (1.8-7.7); NEUTROPHILS % (AUTO) 78.1 % (42-75); PLATELET COUNT 382 X10'3 (140-440); RED CELL DISTRIBUTION WIDTH 12.7 % (11.5-14.5)
[2020-06-01 16:42] LABS: HEMOGLOBIN 19.1 g/dl (14.0-17.9)
[2020-06-01 16:52] LABS: ALANINE AMINOTRANSFERASE 28 U/L (12-78); ALBUMIN 5.5 G/DL (3.4-5.0); ALBUMIN/GLOBULIN RATIO 1.3 (1.1-1.5); ALKALINE PHOSPHATASE 115 IU/L (46-116); ANION GAP 17 (8-16); ASPARTATE AMINO TRANSFERASE 27 U/L (10-37); BILIRUBIN,TOTAL 2.5 MG/DL (0.1-1.0); BLOOD UREA NITROGEN 19 MG/DL (7-18); BUN/CREATININE RATIO 15.4 (5.4-32.0); CALCIUM 10.5 MG/DL (8.5-10.1); CHLORIDE 96 MMOL/L (99-107); CREATININE 1.23 MG/DL (0.60-1.10); GLUCOSE 117 MG/DL (70-104); LIPASE 107 U/L (73-393); POTASSIUM 3.1 MMOL/L (3.5-5.1); SODIUM 135 MMOL/L (135-145); TOTAL CARBON DIOXIDE 22.5 MMOL/L (24-32); TOTAL PROTEIN 9.7 G/DL (6.4-8.2); eGFR 69 ML/MIN
[2020-06-01] MEDS ORDERED: potassium Cl 20 mEq SR tablet PO STA (16:59)
[2020-06-01] MEDS ORDERED: magnesium 2GM in 50ml NS 50 ML IV ONE (17:00)
[2020-06-01] MEDS ORDERED: potassium Cl 10 mEq/100mL bag IV ONE (17:00)
--- NOTE | 2020-06-01 18:45 | NUR ---
Pt resting in bed, advised of wait and vitals done
[2020-06-01 18:52] LABS: PLATELET ESTIMATE NORMAL; TOTAL CELLS COUNTED 100
[2020-06-01 19:22] VITALS: BP 133/82
== END 2020-06-01 19:59 | disposition home or self-care (01) ==
LOC: ER 15:41
DX: R11.15 Cyclical vomiting syndrome unrelated to migraine (principal); R11.2 Nausea with vomiting, unspecified; R10.13 Epigastric pain; E86.0 Dehydration; E87.6 Hypokalemia; K21.9 Gastro-esophageal reflux disease without esophagitis; F12.188 Cannabis abuse with other cannabis-induced disorder; Z72.89 Other problems related to lifestyle; Z79.899 Other long term (current) drug therapy
CPT/HCPCS: 36415; 80053; 83690; 85007; 85025; 96365; 96368; 96372; 96375; 99284; J1630; J2060; J3475; J3480; J7030; 96361

== ENCOUNTER 2020-10-13 11:57 | Emergency (ER) | payer MEDICAID ==
[~2020-10-13] VITALS: Ht 177.8 cm; Wt 68.2 kg
[2020-10-13 12:33] LABS: BASOPHILS % (AUTO) 0.1 % (0-1); EOSINOPHILS % (AUTO) 0 % (0-6); LYMPHOCYTES # (AUTO) 2.1 X10'3 (1.1-4.8); LYMPHOCYTES % (AUTO) 6.7 % (21-51); MEAN CORPUSCULAR HEMOGLOBIN 29.7 PG (27.0-31.0); MEAN CORPUSCULAR HGB CONC 32.8 g/dL (33.0-36.5); MEAN CORPUSCULAR VOLUME 90.6 FL (78-98); MEAN PLATELET VOLUME 9.4 FL (7.4-10.4); MONOCYTES # (AUTO) 2.2 X10'3 (0-0.9); MONOCYTES % (AUTO) 6.9 % (2-12); NEUTROPHILS # (AUTO) 26.8 X10'3 (1.8-7.7); NEUTROPHILS % (AUTO) 86.3 % (42-75); PLATELET COUNT 334 X10'3 (140-440); RED CELL DISTRIBUTION WIDTH 13.2 % (11.5-14.5)
[2020-10-13 12:42] LABS: HEMATOCRIT 65.3 % (42.0-52.0); HEMOGLOBIN 21.4 g/dl (14.0-17.9); WHITE BLOOD COUNT 31.1 X10'3 (4.5-11.0)
[2020-10-13 12:47] LABS: ALANINE AMINOTRANSFERASE 33 U/L (12-78); ALBUMIN 5.6 G/DL (3.4-5.0); ALKALINE PHOSPHATASE 120 IU/L (46-116); BILIRUBIN,TOTAL 0.9 MG/DL (0.1-1.0); BLOOD UREA NITROGEN 116 MG/DL (7-18); BUN/CREATININE RATIO 6.9 (5.4-32.0); CALCIUM 10.9 MG/DL (8.5-10.1); CHLORIDE 98 MMOL/L (99-107); CREATININE 16.92 MG/DL (0.60-1.10); GLUCOSE 188 MG/DL (70-104); LIPASE 742 U/L (73-393); TOTAL CARBON DIOXIDE 18.2 MMOL/L (24-32); TOTAL PROTEIN 11.2 G/DL (6.4-8.2); eGFR 3 ML/MIN
[2020-10-13 12:52] LABS: ASPARTATE AMINO TRANSFERASE 51 U/L (10-37); POTASSIUM 5.7 MMOL/L (3.5-5.1); SODIUM 149 MMOL/L (135-145)
[2020-10-13 13:01] LABS: PLATELET ESTIMATE NORMAL; TOTAL CELLS COUNTED 100
[2020-10-13 13:15] LABS: ANION GAP 33 (8-16)
[2020-10-13] MEDS ORDERED: proCHLORperazine 10 MG/2 ml inj IV ONE (14:05)
[2020-10-13] MEDS ORDERED: morphine 4 MG/ML inj SYRINge IV ONE (14:05)
[2020-10-13] MEDS ORDERED: diphenhydrAMINE 50 mg/ml inj IV ONE (14:05)
[2020-10-13] MEDS ORDERED: albuterol 2.5 MG/3 ML nebule CONTNEB PRN (14:10)
[2020-10-13] MEDS ORDERED: sodium bicarbonate (8.4%) inj. 150 MEQ in dextrose 5%-water 1,000 ML IV ONE (14:10)
[2020-10-13] MEDS ORDERED: sodium chloride 0.45% 1,000 ML IV ONE (14:50)
[2020-10-13] MEDS: sodium bicarbonate (8.4%) inj. 75 MEQ in dextrose 5% water 500ml 500 ML IV SCH ×2 (15:07→17:08)
[2020-10-13] MEDS ORDERED: piperacillin/tazo 3.375gm/50ml 50 ML IV SCH (15:14)
[2020-10-13] MEDS ORDERED: scopolamine 1.5mg patch.TD72 TD SCH (15:15)
[2020-10-13] MEDS ORDERED: proCHLORperazine 10 MG/2 ml inj IV PRN (15:15)
[2020-10-13] MEDS ORDERED: HYDROmorphone 1 mg/ml syringe IV PRN (15:20)
[2020-10-13] MEDS ORDERED: scopolamine 1mg/72 hr patch TD SCH (15:22)
[2020-10-13] MEDS ORDERED: NO HOME MEDS (16:04)
[2020-10-13] MEDS: pantoprazole 40MG/NS 100ML BAG 100 ML IV SCH ×2 (16:26→21:00)
[2020-10-13] MEDS ORDERED: normal saline 1000ML IV soln IV ONE ×2 (18:00→18:55)
[2020-10-13] MEDS ORDERED: vancomycin/NS 1 GM ADD-VANTAGE 250 ML IV ONE (18:55)
[2020-10-13 19:12] VITALS: BP 149/106
[2020-10-13] MEDS ORDERED: fluconazole-Diflucan 200mg/NS 100 ML IV ONE (19:20)
[2020-10-13] MEDS ORDERED: heparin, porcine 5000 units/ml vial SQ SCH (20:00)
[2020-10-13] MEDS ORDERED: Potassium Cl 40 MEQ in sodium chloride 0.45% 500 ML IV ONE (20:05)
[2020-10-13] MEDS ORDERED: calcium chloride 100 MG/1 ML inj IV ONE (20:05)
[2020-10-13 20:09] LABS: CLARITY,URINE SLIGHTLY CLOUDY (Clear); COLOR,URINE YELLOW (Yellow); GLUCOSE, URINE 500 mg/dl (Neg); KETONES,URINE TRACE mg/dl (Neg); LEUKOCYTE ESTERASE ,URINE NEGATIVE (Neg); NITRITES, URINE NEGATIVE (Neg); OCCULT BLOOD,URINE LARGE (Neg); PROTEIN,URINE >=300 mg/dl (Neg); UROBILINOGEN,URINE 0.2 E.U/dL (0.2-1.0)
[2020-10-13 20:16] LABS: ALBUMIN 3.7 G/DL (3.4-5.0); ANION GAP 20 (8-16); BLOOD UREA NITROGEN 115 MG/DL (7-18); BUN/CREATININE RATIO 8.2 (5.4-32.0); CALCIUM 7.2 MG/DL (8.5-10.1); CHLORIDE 109 MMOL/L (99-107); CREATININE 13.94 MG/DL (0.60-1.10); GLUCOSE 183 MG/DL (70-104); PHOSPHORUS 6.5 MG/DL (2.3-4.5); POTASSIUM 4.1 MMOL/L (3.5-5.1); SODIUM 153 MMOL/L (135-145); TOTAL CARBON DIOXIDE 23.8 MMOL/L (24-32); eGFR 4 ML/MIN
[2020-10-13 20:17] LABS: URINE AMPHETAMINE SCREEN NEGATIVE (Neg); URINE BARBITUATE SCREEN NEGATIVE (Neg); URINE BENZODIAZEPINES SCREEN NEGATIVE (Neg); URINE CANNABINOID SCREEN POSITIVE (Neg); URINE COCAINE SCREEN NEGATIVE (Neg); URINE METHADONE SCREEN NEGATIVE (Neg); URINE OPIATE SCREEN POSITIVE (Neg); URINE PHENCYCLIDINE SCREEN NEGATIVE (Neg)
[2020-10-13 20:37] LABS: UA COLLECTION TYPE OTHER
[2020-10-13 20:40] LABS: AMORPHOUS URATES 3+; BACTERIA,URINE NONE SEEN /HPF (Neg); MUCUS STRANDS MANY /LPF (Neg); RENAL CELLS, URINE FEW /HPF; SQUAMOUS EPITHELIAL CELL,UR FEW /LPF (FEW); TRANSITIONAL EPI CELLS,URINE MODERATE /HPF; WBC,URINE 0-4 /HPF (0-4)
[2020-10-13 20:42] LABS: COARSE GRANULAR CAST 0-3 /LPF (NEGATIVE); FINE GRANULAR CAST 0-3 /LPF (NEGATIVE)
[2020-10-13 20:43] LABS: WAXY CASTS,URINE 0-3 /LPF (NEGATIVE)
--- NOTE | 2020-10-13 20:49 | NUR ---
[facility] fixed wing crew in with pt. Pending meds sent with crew including Diflucan, Vanco, Bicarb, 2 L Lactated ringers. Crew awaiting results of blood and urine labs before transporting.
--- NOTE | 2020-10-13 21:18 | NUR ---
REPORT GIVEN TO RADHA DIEHL RN AT [facility]. [phone]
== END 2020-10-13 21:39 | disposition short-term general hospital (02) ==
LOC: ER 11:58
DX: N17.9 Acute kidney failure, unspecified (principal); E86.0 Dehydration; E87.5 Hyperkalemia; J98.2 Interstitial emphysema; R11.2 Nausea with vomiting, unspecified; K21.9 Gastro-esophageal reflux disease without esophagitis; F12.90 Cannabis use, unspecified, uncomplicated; Z95.1 Presence of aortocoronary bypass graft; Z72.89 Other problems related to lifestyle; Z79.899 Other long term (current) drug therapy
CPT/HCPCS: 36415; 71250; 74176; 76700; 80053; 80069; 80305; 81001; 83605; 83690; 85007; 85025; 94644; 96361; 96365; 96367; 96375; 99291; 99292; C9113; J0780; J1170; J1200; J2270; J2543; J3370; J7030; 94640

== ENCOUNTER 2020-10-21 13:16 | Emergency (ER) | payer MEDICAID ==
[~2020-10-21] VITALS: Ht 177.8 cm; Wt 63.2 kg
[~2020-10-21 13:16] MED LIST changes: -LACT1CAP26 PO; +NO HOME MEDS; -ONDA4TAB6 PO; -PANT40TA54 PO
[2020-10-21] MEDS ORDERED: normal saline 1000ML IV soln IVB ONE (14:40)
[2020-10-21] MEDS ORDERED: ondansetron/PF 4mg/2ml inj IV ONE (14:40)
[2020-10-21] MEDS ORDERED: CefTRIAXone/D5W-Rocephin 1gm 50 ML IV ONE (14:40)
[2020-10-21] MEDS ORDERED: proCHLORperazine 10 MG/2 ml inj IV ONE (14:40)
[2020-10-21] MEDS ORDERED: normal saline 1000ml 1,000 ML IV ONE (14:40)
[2020-10-21] MEDS ORDERED: morphine 4 MG/ML inj SYRINge IV ONE (14:55)
[2020-10-21 15:02] LABS: BASOPHILS % (AUTO) 0.1 % (0-1); EOSINOPHILS # (AUTO) 0.1 X10'3 (0-0.9); EOSINOPHILS % (AUTO) 0.4 % (0-6); HEMATOCRIT 50.1 % (42.0-52.0); HEMOGLOBIN 17.4 g/dl (14.0-17.9); LYMPHOCYTES # (AUTO) 2.5 X10'3 (1.1-4.8); LYMPHOCYTES % (AUTO) 15.6 % (21-51); MEAN CORPUSCULAR HEMOGLOBIN 30.2 PG (27.0-31.0); MEAN CORPUSCULAR HGB CONC 34.7 g/dL (33.0-36.5); MEAN PLATELET VOLUME 8.8 FL (7.4-10.4); MONOCYTES # (AUTO) 1.6 X10'3 (0-0.9); MONOCYTES % (AUTO) 9.7 % (2-12); NEUTROPHILS # (AUTO) 11.8 X10'3 (1.8-7.7); NEUTROPHILS % (AUTO) 74.2 % (42-75); PLATELET COUNT 328 X10'3 (140-440); RED BLOOD COUNT 5.76 X10'6 (4.70-6.10); RED CELL DISTRIBUTION WIDTH 12.4 % (11.5-14.5)
[2020-10-21] MEDS ORDERED: iohexol 300mg/ml 100ml inj. ONE (15:13)
[2020-10-21 15:15] LABS: ALANINE AMINOTRANSFERASE 292 U/L (12-78); ALBUMIN/GLOBULIN RATIO 1.2 (1.1-1.5); ALKALINE PHOSPHATASE 91 IU/L (46-116); ANION GAP 18 (8-16); ASPARTATE AMINO TRANSFERASE 207 U/L (10-37); BILIRUBIN,TOTAL 0.7 MG/DL (0.1-1.0); BLOOD UREA NITROGEN 37 MG/DL (7-18); BUN/CREATININE RATIO 19.3 (5.4-32.0); CALCIUM 10.3 MG/DL (8.5-10.1); CHLORIDE 100 MMOL/L (99-107); CREATININE 1.92 MG/DL (0.60-1.10); GLUCOSE 103 MG/DL (70-104); POTASSIUM 4.1 MMOL/L (3.5-5.1); SODIUM 138 MMOL/L (135-145); TOTAL CARBON DIOXIDE 20.3 MMOL/L (24-32); TOTAL PROTEIN 9.3 G/DL (6.4-8.2); eGFR 41 ML/MIN
[2020-10-21 15:20] LABS: TROPONIN I < 0.04 NG/ML (0.0-0.05)
[2020-10-21 15:33] LABS: LIPASE 2311 U/L (73-393)
[2020-10-21] MEDS ORDERED: ONDA4TAB6 PO (16:17)
[2020-10-21] MEDS ORDERED: HYDR-3965 PO (16:17)
[2020-10-21] MEDS ORDERED: PROM25SU9 RC (16:17)
[2020-10-21 17:52] VITALS: BP 141/91
== END 2020-10-21 17:53 | disposition home or self-care (01) ==
LOC: ER 13:16
DX: R11.15 Cyclical vomiting syndrome unrelated to migraine (principal); K85.90 Acute pancreatitis without necrosis or infection, unspecified; R07.89 Other chest pain; R07.0 Pain in throat; K21.9 Gastro-esophageal reflux disease without esophagitis; F12.90 Cannabis use, unspecified, uncomplicated; Z72.89 Other problems related to lifestyle
CPT/HCPCS: 36415; 71260; 80053; 83605; 83690; 84145; 84484; 85025; 87040; 96361; 96365; 96375; 99285; J0696; J0780; J2270; J2405; J7030; Q9967

== ENCOUNTER 2022-10-03 22:28 | Emergency (ER) | payer MEDICAID ==
[~2022-10-03] VITALS: Ht 177.8 cm; Wt 68.2 kg
[~2022-10-03 22:28] MED LIST changes: +ONDA4TAB6 PO; +PROM25SU9 RC
[2022-10-04] MEDS: normal saline 1000ML IV soln IVB ONE (03:39)
[2022-10-04] MEDS: proCHLORperazine 10 MG/2 ml inj IV ONE (03:40)
[2022-10-04] MEDS: ondansetron/PF 4mg/2ml inj IV ONE (03:40)
[2022-10-04] MEDS: haloperidol lactate 5mg/ml inj IM ONE (03:40)
[2022-10-04 04:09] LABS: BASOPHILS % (AUTO) 0.1 % (0-1); EOSINOPHILS % (AUTO) 0.1 % (0-6); HEMATOCRIT 48.8 % (42.0-52.0); LYMPHOCYTES # (AUTO) 1.5 X10'3 (1.1-4.8); MEAN CORPUSCULAR HEMOGLOBIN 30.3 PG (27.0-31.0); MEAN CORPUSCULAR HGB CONC 34.8 g/dL (33.0-36.5); MEAN PLATELET VOLUME 7.9 FL (7.4-10.4); MONOCYTES # (AUTO) 0.7 X10'3 (0-0.9); MONOCYTES % (AUTO) 3.5 % (2-12); NEUTROPHILS # (AUTO) 16.7 X10'3 (1.8-7.7); NEUTROPHILS % (AUTO) 88.3 % (42-75); PLATELET COUNT 364 X10'3 (140-440); RED BLOOD COUNT 5.61 X10'6 (4.70-6.10); RED CELL DISTRIBUTION WIDTH 13.3 % (11.5-14.5); WHITE BLOOD COUNT 18.9 X10'3 (4.5-11.0)
[2022-10-04 04:15] LABS: ALANINE AMINOTRANSFERASE 23 U/L (12-78); ALBUMIN 5.1 G/DL (3.4-5.0); ALBUMIN/GLOBULIN RATIO 1.2 (1.1-1.5); ALKALINE PHOSPHATASE 95 IU/L (46-116); ANION GAP 18 (8-16); ASPARTATE AMINO TRANSFERASE 25 U/L (10-37); BILIRUBIN,TOTAL 0.9 MG/DL (0.1-1.0); CALCIUM 10.2 MG/DL (8.5-10.1); CHLORIDE 101 MMOL/L (99-107); CREATININE 1.38 MG/DL (0.60-1.10); GLUCOSE 157 MG/DL (70-104); LIPASE 60 U/L (73-393); POTASSIUM 3.7 MMOL/L (3.5-5.1); SODIUM 143 MMOL/L (135-145); TOTAL CARBON DIOXIDE 24.4 MMOL/L (24-32); TOTAL PROTEIN 9.2 G/DL (6.4-8.2); eGFR 60 ML/MIN
[2022-10-04 04:21] LABS: BLOOD UREA NITROGEN 27 MG/DL (7-18); BUN/CREATININE RATIO 19.6 (10.0-20.0)
[2022-10-04] MEDS ORDERED: pantoprazole 40mg IV 80 MG in normal saline 100ml IV soln 100 ML IV ONE (04:25)
[2022-10-04] MEDS: normal saline 1000ml 1,000 ML IV ONE (04:27)
[2022-10-04] MEDS: famotidine/PF 10 mg/ml inj IV ONE (04:28)
[2022-10-04] MEDS: pantoprazole 40MG/NS 100ML BAG 100 ML IV ONE (04:54)
[2022-10-04] MEDS ORDERED: ONDA8TAB13 PO (05:17)
[2022-10-04] MEDS ORDERED: PANT-47 PO (05:17)
[2022-10-04] MEDS ORDERED: PROM12.574 RC (05:17)
[2022-10-04 05:29] VITALS: BP 109/59
[2022-10-04 05:31] LABS: CLARITY,URINE SLIGHTLY CLOUDY (Clear); GLUCOSE, URINE NEGATIVE (Neg); KETONES,URINE >=80 mg/dl (Neg); LEUKOCYTE ESTERASE ,URINE NEGATIVE (Neg); NITRITES, URINE NEGATIVE (Neg); OCCULT BLOOD,URINE MODERATE (Neg); PH,URINE 5.5 (4.8-8.0); PROTEIN,URINE 100 mg/dl (Neg); UROBILINOGEN,URINE 0.2 E.U/dL (0.2-1.0)
[2022-10-04 05:33] LABS: COLOR,URINE DARK YELLOW (Yellow); UA COLLECTION TYPE CLN CATCH MIDSTREAM
[2022-10-04 05:36] LABS: URINE AMPHETAMINE SCREEN NEGATIVE (Neg); URINE BARBITUATE SCREEN NEGATIVE (Neg); URINE BENZODIAZEPINES SCREEN NEGATIVE (Neg); URINE CANNABINOID SCREEN POSITIVE (Neg); URINE COCAINE SCREEN NEGATIVE (Neg); URINE METHADONE SCREEN NEGATIVE (Neg); URINE OPIATE SCREEN NEGATIVE (Neg); URINE PHENCYCLIDINE SCREEN NEGATIVE (Neg)
[2022-10-04 05:37] LABS: BACTERIA,URINE FEW /HPF (Neg); MUCUS STRANDS MANY /LPF (Neg); SQUAMOUS EPITHELIAL CELL,UR FEW /LPF (FEW)
== END 2022-10-04 05:31 | disposition home or self-care (01) ==
LOC: ER 22:29
DX: R11.2 Nausea with vomiting, unspecified (principal); F12.10 Cannabis abuse, uncomplicated; K21.9 Gastro-esophageal reflux disease without esophagitis
CPT/HCPCS: 36415; 80053; 80305; 81001; 83690; 85025; 87088; 96361; 96365; 96372; 96375; 99284; C9113; J0780; J1630; J2405; J3490; J7030